=== PATIENT | female | born 1955 | race Caucasian/White ===

== ENCOUNTER 2016-07-10 23:11 | Emergency (ER) | payer OTHER ==
[2016-07-10 23:51] VITALS: BMI 24.3
--- NOTE | 2016-07-11 | ED PDOC ---
Arrival/HPI - General Time Seen by Provider: 07/10/16 23:45 Historian: Patient - History of Present Illness Narrative History of Present Illness (Text): 07/10/16 23:57 Sheron Em is a 60 year old female, whose past medical history includes hypertension, CHF, diabetes, dyslipidemia, pacemaker, and cardiac arrest, who presents to the Emergency department accompanied by daughter complaining of depression. Daughter states tonight patient became very angry/upset and tearful after speaking with her sister over the phone regarding money issues. Daughter notes patient has been feeling depressed recently. Patient denies any suicidal ideation, homicidal ideation, fever, chills, chest pain, shortness of breath, nausea, vomiting, diarrhea, urinary symptoms, back pain, neck pain, headache, dizziness, or any other complaints. Time/Duration: Other (tonight) Symptom Onset: Gradual Symptom Course: Unchanged Activities at Onset: Emotional Upset Context: Home Past Medical History - Provider Review Nursing Documentation Reviewed: Yes - Infectious Disease Hx of Infectious Diseases: None - Tetanus Immunization Tetanus Immunization: Unknown - Cardiac Hx Cardiac Disorders: Yes Hx Congestive Heart Failure: Yes Hx Hypertension: Yes - Pulmonary Hx Respiratory Disorders: Yes Hx Asthma: Yes Hx Pneumonia: Yes - Neurological Hx Neurological Disorder: Yes (neuropathy) - HEENT Hx HEENT Disorder: No - Renal Hx Renal Disorder: No - Endocrine/Metabolic Hx Diabetes Mellitus Type 2: Yes Hx Hypothyroidism: No - Hematological/Oncological Hx Blood Disorders: No - Integumentary Hx Dermatological Disorder: No - Musculoskeletal/Rheumatological Hx Musculoskeletal Disorders: No - Gastrointestinal Hx Gastrointestinal Disorders: Yes Hx Gastroesophageal Reflux: Yes - Genitourinary/Gynecological Hx Genitourinary Disorders: No - Psychiatric Hx Anxiety: Yes Hx Substance Use: No - Past Surgical History Past Surgical History: Unable to Obtain - Surgical History Hx Coronary Stent: No - Anesthesia Hx Anesthesia: No Hx Anesthesia Reactions: No Hx Malignant Hyperthermia: No - Suicidal Assessment Feels Threatened In Home Enviroment: No Family/Social History - Physician Review Nursing Documentation Reviewed: Yes Family/Social History: No Known Family HX Smoking Status: Never Smoked Hx Alcohol Use: No Hx Substance Use: No Hx Substance Use Treatment: No Allergies/Home Meds Allergies/Adverse Reactions: Allergies No Known Allergies Allergy (Verified 11/18/15 06:00) Home Medications: Home Meds Medication Instructions Recorded Confirmed Simvastatin 40 mg PO DAILY 07/05/12 05/13/16 Aspirin [Adult Low Dose Aspirin EC] 81 mg PO DAILY 11/18/15 05/16/16 Metformin HCl [Glucophage] 850 mg PO BID 11/18/15 05/16/16 Sertraline HCl [Zoloft] 25 mg PO DAILY 12/20/15 05/13/16 Review of Systems - Physician Review All systems were reviewed & negative as marked: Yes - Review of Systems Constitutional: Normal. absent: Fevers Eyes: Normal ENT: Normal Respiratory: Normal. absent: SOB, Cough Cardiovascular: Normal. absent: Chest Pain Gastrointestinal: Normal. absent: Abdominal Pain, Diarrhea, Nausea, Vomiting Genitourinary Female: Normal. absent: Dysuria, Frequency, Hematuria, Urine Output Changes Musculoskeletal: Normal. absent: Back Pain, Neck Pain Skin: Normal. absent: Rash Neurological: Normal. absent: Headache, Dizziness Endocrine: Normal Hemo/Lymphatic: Normal Psychiatric: Depression Physical Exam Vital Signs Reviewed: Yes Vital Signs Temp Pulse Resp BP Pulse Ox 07/11/16 01:51 69 17 121/66 99 07/11/16 00:06 98.7 F 89 17 155/86 H 98 Temperature: Afebrile Blood Pressure: Normal Pulse: Regular Respiratory Rate: Normal Appearance: Positive for: Well-Appearing, Non-Toxic, Comfortable Pain Distress: None Mental Status: Positive for: Alert and Oriented X 3 - Systems Exam Head: Present: Atraumatic, Normocephalic Pupils: Present: PERRL Extroacular Muscles: Present: EOMI Conjunctiva: Present: Normal Mouth: Present: Moist Mucous Membranes Neck: Present: Normal Range of Motion Respiratory/Chest: Present: Clear to Auscultation, Good Air Exchange. No: Respiratory Distress, Accessory Muscle Use Cardiovascular: Present: Regular Rate and Rhythm, Normal S1, S2. No: Murmurs Abdomen: Present: Normal Bowel Sounds. No: Tenderness, Distention, Peritoneal Signs Back: Present: Normal Inspection Upper Extremity: Present: Normal Inspection. No: Cyanosis, Edema Lower Extremity: Present: Normal Inspection. No: Edema Neurological: Present: GCS=15, CN II-XII Intact, Speech Normal Skin: Present: Warm, Dry, Normal Color. No: Rashes Psychiatric: Present: Alert, Oriented x 3, Normal Insight, Normal Concentration , Other (Tearful) Medical Decision Making ED Course and Treatment: 07/10/16 23:57 Impression: 60 year old female brought in for depression. Plan: -- EKG -- Chest X-ray -- Labs, alcohol level -- Urine drug screen -- Reassess and disposition Prior Visits: Notes and results from previous visits were reviewed. Progress Notes: Reviewed EKG, NSR at [address]/T wave changes. 07/11/16 02:05 Reviewed radiology, Chest X-ray shows no active disease. Reviewed labs, alcohol level <10. Negative tox screen. Patient medically cleared for psychiatric evaluation. SELMA solano. 07/11/16 04:05 Pt was seen and evaluated by SELMA Osorio. Pt was slated for eventual d/c, pending clearance by Dr. Watt, according to SELMA messina. Notified by RN that pt and family eloped from ER, refusing to wait. - Lab Interpretations Lab Results: 07/11/16 00:05 07/11/16 00:05 Lab Results 07/11/16 00:15: Urine Opiates Screen Negative, Urine Methadone Screen Negative, Ur Barbiturates Screen Negative, Ur Phencyclidine Scrn Negative, Ur Amphetamines Screen Negative, U Benzodiazepines Scrn Negative, U Oth Cocaine Metabols Negative, U Cannabinoids Screen Negative 07/11/16 00:05: WBC 5.6, RBC 4.25, Hgb 11.3 L, Hct 33.8 L, MCV 79.5 L, MCH 26.6 , MCHC 33.4, RDW 14.2, Plt Count 272, MPV 11.4 H, Sodium 135, Potassium 4.1, Chloride 96 L, Carbon Dioxide 25, Anion Gap 18, BUN 29 H, Creatinine 1.3, Est GFR ( Amer) 51, Est GFR (Non-Af Amer) 42, Random Glucose 187 H, Calcium 10.0, Total Bilirubin 0.5, AST 21, ALT 27, Alkaline Phosphatase 61, Total Protein 8.7 H, Albumin 4.9 H, Globulin 3.8, Albumin/Globulin Ratio 1.3, Alcohol , Quantitative < 10 I have reviewed the lab results: Yes - RAD Interpretation Radiology Orders: 07/11/16 00:01 CHEST PORTABLE [RAD] Stat Organizational Psychologist: ED Physician - EKG Interpretation Interpreted by ED Physician: Yes Type: 12 lead EKG - Scribe Statement The provider has reviewed the documentation as recorded by the Veronica Chapa Provider Attestation: All medical record entries made by the Veronica were at my direction and personally dictated by me. I have reviewed the chart and agree that the record accurately reflects my personal performance of the history, physical exam, medical decision making, and the department course for this patient. I have also personally directed, reviewed, and agree with the discharge instructions and disposition. Disposition/Present on Arrival - Present on Arrival Any Indicators Present on Arrival: No History of DVT/PE: No History of Uncontrolled Diabetes: No Urinary Catheter: No History Surgical Site Infection Following: None - Disposition Have Diagnosis and Disposition been Completed?: Yes Diagnosis: Adjustment disorder with depressed mood Disposition: ELOPEMENT - ER ONLY Disposition Time: 04:10 Condition: GOOD
[2016-07-11 00:10] VITALS: RESP 17; TEMP 98.7
[2016-07-11 00:37] LABS: HEMATOCRIT 33.8 % (36.0-48.0); MEAN CELL VOLUME 79.5 fL (80.0-105.0); MEAN CORPUSCULAR HEMOGLOBIN 26.6 pg (25.0-35.0); MEAN CORPUSCULAR HGB CONC 33.4 g/dl (31.0-37.0); MEAN PLATELET VOLUME 11.4 fl (7.0-11.0); RED CELL DISTRIBUTION WIDTH 14.2 % (11.5-14.5); WHITE BLOOD COUNT 5.6 10^3/ul (4.5-11.0)
[2016-07-11 00:53] LABS: ALB/GLOB RATIO 1.3 (1.1-1.8); BILIRUBIN,TOTAL 0.5 mg/dL (0.2-1.3); POTASSIUM 4.1 mmol/L (3.6-5.0); TOTAL PROTEIN 8.7 g/dL (5.8-8.3)
[2016-07-11 01:51] VITALS: BP 121/66; PULSE 69; O2SAT 99
--- NOTE | 2016-07-11 07:15 | RAD ---
HISTORY: medical clearance COMPARISON: 05/13/2016 FINDINGS: LUNGS: No active pulmonary disease. The prior airspace opacity/infiltrate -most pronounced the left lung base has cleared PLEURA: No significant pleural effusion identified, no pneumothorax apparent. CARDIOVASCULAR: Pacemaker-AICD device in place. Normal heart size OSSEOUS STRUCTURES: No significant abnormalities. VISUALIZED UPPER ABDOMEN: Normal. OTHER FINDINGS: None. IMPRESSION: No active disease. Interval clearing of prior infiltrate
--- NOTE | 2016-07-11 16:49 | CARD ---
APPROVED REPORT EKG Measurement Heart [id number] <Conclusion> Normal sinus rhythm ST & T wave abnormality, consider lateral ischemia Abnormal ECG
== END 2016-07-11 03:58 | disposition left against medical advice (07) ==
LOC: ED 23:11
DX: F43.21 Adjustment disorder with depressed mood (principal); E11.9 Type 2 diabetes mellitus without complications; I10 Essential (primary) hypertension; E78.5 Hyperlipidemia, unspecified; I50.9 Heart failure, unspecified; Z95.0 Presence of cardiac pacemaker; Z86.74 Personal history of sudden cardiac arrest

== ENCOUNTER 2016-11-10 16:27 | Observation (INO) | payer OTHER ==
[2016-11-10 16:39] VITALS: BMI 29.8
[2016-11-10 17:20] LABS: BASO # 0.03 K/mm3 (0.0-2.0); BASO % 0.6 % (0.0-3.0); EOS # 0.1 (0.0-0.7); EOS % 2.7 % (1.5-5.0); GRAN # 2.48 (1.4-6.5); GRAN % 48.2 % (50.0-68.0); HEMOGLOBIN 9.7 gm/dL (12.0-16.0); LYMPH # 2.2 (1.2-3.4); LYMPH % 42.3 % (22.0-35.0); MEAN CORPUSCULAR HEMOGLOBIN 26.8 pg (25.0-35.0); MEAN CORPUSCULAR HGB CONC 32.7 g/dl (31.0-37.0); MEAN PLATELET VOLUME 10.5 fl (7.0-11.0); MONO # 0.3 (0.1-0.6); MONO % 6.2 % (1.0-6.0); PLATELET COUNT 241 10^3/uL (120.0-450.0); RBC 3.62 10^6/uL (3.5-6.1); RED CELL DISTRIBUTION WIDTH 13.6 % (11.5-14.5); WHITE BLOOD COUNT 5.2 10^3/ul (4.5-11.0)
[2016-11-10 17:31] LABS: ALB/GLOB RATIO 1.4 (1.1-1.8); ALBUMIN 4.1 g/dL (3.0-4.8); ALT/SGPT 21 U/L (7-56); AST/SGOT 24 U/L (15-39); BLOOD UREA NITROGEN 21 mg/dL (7-21); CALCIUM 9.3 mg/dL (8.4-10.5); GFR AFRICAN-AMERICAN > 60; GFR NON-AFRICAN AMERICAN 51; INR 0.98 (0.93-1.08); LIPASE 103 U/L (23-300); MAGNESIUM 1.5 mg/dL (1.7-2.2); PARTIAL THROMBOPLASTIN TIME 27.8 Seconds (23.7-30.8); PROTHROMBIN TIME 10.6 Seconds (9.9-11.8)
[2016-11-10] MEDS ORDERED: Magnesium Sulfate 2 GM in Sodium Chloride 0.9% 100 ML IV ONE (17:37)
[2016-11-10 17:43] LABS: B-TYPE NATRIURETIC PEPTIDE 990 pg/mL (0-450)
[2016-11-10 17:44] LABS: TROPONIN I < 0.01 ng/mL
--- NOTE | 2016-11-10 18:00 | ED PDOC ---
Arrival/HPI - General Chief Complaint: Syncope Time Seen by Provider: 11/10/16 16:32 Historian: Patient - History of Present Illness Narrative History of Present Illness (Text): 11/10/16 17:00 A 60 year old female, whose past medical history includes hypertension, CHF, diabetes, dyslipidemia, cardiac arrest, and pacemaker, is presenting to the emergency department after having an episode of feeling faint and diaphoresis after eating lunch around 1pm this today. The patient complains of chest pain, diaphoresis, and dizziness during her episode. She states her daughter gave her something to drink thinking she felt this way due to hyperglycemia. She notes after drinking she felt better, but when she stood up she had another episode of nearly fainting. Along with her symptoms she also reports of having black stool for the past week. The patient denies any nausea, vomiting, diarrhea, or any other complaints at this time. Time/Duration: 4-6 hours (1 pm today ) Symptom Onset: Sudden Symptom Course: Unchanged Activities at Onset: Light, Eating Context: Home Past Medical History - Provider Review Nursing Documentation Reviewed: Yes - Infectious Disease Hx of Infectious Diseases: None - Tetanus Immunization Tetanus Immunization: Unknown - Cardiac Hx Cardiac Disorders: Yes Hx Congestive Heart Failure: Yes Hx MS: Yes Hx Hypertension: Yes Hx Peripheral Edema: Yes - Pulmonary Hx Respiratory Disorders: Yes Hx Asthma: Yes Hx Pneumonia: Yes Hx Pulmonary Edema: Yes - Neurological Hx Neurological Disorder: Yes (neuropathy) - HEENT Hx HEENT Disorder: No - Renal Hx Renal Disorder: No - Endocrine/Metabolic Hx Diabetes Mellitus Type 2: Yes Hx Hypothyroidism: No - Hematological/Oncological Hx Blood Disorders: No - Integumentary Hx Dermatological Disorder: No - Musculoskeletal/Rheumatological Hx Musculoskeletal Disorders: No - Gastrointestinal Hx Gastrointestinal Disorders: Yes Hx Gastroesophageal Reflux: Yes - Genitourinary/Gynecological Hx Genitourinary Disorders: No - Psychiatric Hx Anxiety: Yes Hx Substance Use: No - Past Surgical History Past Surgical History: Unable to Obtain - Surgical History Other/Comment: cardiac arrest 03/2015 - Anesthesia Hx Anesthesia: No Hx Anesthesia Reactions: No Hx Malignant Hyperthermia: No - Suicidal Assessment Feels Threatened In Home Enviroment: No Family/Social History - Physician Review Nursing Documentation Reviewed: Yes Family/Social History: No Known Family HX Smoking Status: Never Smoked Hx Alcohol Use: No Hx Substance Use: No Hx Substance Use Treatment: No Allergies/Home Meds Allergies/Adverse Reactions: Allergies No Known Allergies Allergy (Verified 11/10/16 16:39) Home Medications: Home Meds Medication Instructions Recorded Confirmed Simvastatin 40 mg PO DAILY 07/05/12 11/10/16 Aspirin [Adult Low Dose Aspirin EC] 81 mg PO DAILY 11/18/15 11/10/16 Metformin HCl [Glucophage] 850 mg PO BID 11/18/15 11/10/16 Sertraline HCl [Zoloft] 25 mg PO DAILY 12/20/15 11/10/16 Review of Systems - Physician Review All systems were reviewed & negative as marked: Yes - Review of Systems Cardiovascular: Chest Pain Gastrointestinal: Stool Changes (Black stool x 1 week ) Neurological: Dizziness Endocrine: Diaphoresis Physical Exam Vital Signs Reviewed: Yes Vital Signs Temp Pulse Resp BP Pulse Ox 11/10/16 16:50 98.3 F 61 25 H 118/67 97 Temperature: Afebrile Blood Pressure: Normal Pulse: Regular Respiratory Rate: Normal Appearance: Positive for: Well-Appearing, Non-Toxic, Comfortable Pain Distress: None Mental Status: Positive for: Alert and Oriented X 3 - Systems Exam Head: Present: Atraumatic, Normocephalic Pupils: Present: PERRL Mouth: Present: Moist Mucous Membranes Neck: Present: Normal Range of Motion Respiratory/Chest: Present: Clear to Auscultation, Good Air Exchange. No: Respiratory Distress, Accessory Muscle Use Cardiovascular: Present: Regular Rate and Rhythm, Normal S1, S2. No: Murmurs Abdomen: Present: Normal Bowel Sounds. No: Tenderness, Distention, Peritoneal Signs Upper Extremity: Present: Normal Inspection. No: Cyanosis, Edema Lower Extremity: Present: Normal Inspection. No: Edema Neurological: Present: GCS=15, Speech Normal Skin: Present: Warm, Dry, Normal Color. No: Rashes Psychiatric: Present: Alert, Oriented x 3, Normal Insight, Normal Concentration Medical Decision Making ED Course and Treatment: 11/10/16 17:00 Impression: A 60 year old female who had two episodes of nearly fainting. Differential Diagnosis included but are not limited to: ACS vs. PE vs electolyte abnormality vs arrhythmia Plan: -- Head CT -- EKG -- Chest X-Ray -- IV Fluids -- Urinalysis -- Reassess and disposition Prior Visits: Notes and results from previous visits were reviewed. Patient was last seen on 07/10/16 for depression. Patient eloped from the Emergency department. Progress Notes: EKG: Ordered, reviewed, and independently interpreted the EKG. Rate : 57 BPM Rhythm : Bradycardic Interpretation : First degree AV block. WA is 218. Intervals are normal with normal access. Comparison : No ST/T changes compared to 07/10/16 11/10/16 18:33 Patient with noted history of multiple episodes of chest pain with near syncope. EKG is unchanged. CBC shows mildly decreased H/H; electrolytes are nondiagnostic. Given history - will place on tele; discussed with Dr. Pickens for observation on tele. - Lab Interpretations Lab Results: 11/10/16 16:55 11/10/16 16:55 Lab Results 11/10/16 16:55: Sodium 136, Potassium 4.3, Chloride 102, Carbon Dioxide 23, Anion Gap 15, BUN 21, Creatinine 1.1, Est GFR ( Amer) > 60, Est GFR (Non- Af Amer) 51, Random Glucose 120 H, Calcium 9.3, Magnesium 1.5 L, Total Bilirubin 0.3, AST 24, ALT 21, Alkaline Phosphatase 45, Lactate Dehydrogenase 358, Total Creatine Kinase 61, Troponin I < 0.01 D, NT-Pro-B Natriuret Pep 990 H, Total Protein 7.1, Albumin 4.1, Globulin 3.0, Albumin/Globulin Ratio 1.4, Lipase 103 11/10/16 16:55: PT 10.6, INR 0.98, APTT 27.8 11/10/16 16:55: WBC 5.2, RBC 3.62, Hgb 9.7 L, Hct 29.7 L, MCV 82.0, MCH 26.8, MCHC 32.7, RDW 13.6, Plt Count 241, MPV 10.5, Gran % 48.2 L, Lymph % (Auto) 42.3 H, Amelia % (Auto) 6.2 H, Eos % (Auto) 2.7, Baso % (Auto) 0.6, Gran # 2.48, Lymph # 2.2, Amelia # 0.3, Eos # 0.1, Baso # 0.03 - RAD Interpretation Radiology Orders: 11/10/16 17:06 CHEST PORTABLE [RAD] Stat 11/10/16 17:08 Brain [HEAD W/O CONTRAST] [CT] Stat - Medication Orders Current Medication Orders: Magnesium Sulfate 2 gm/ Sodium (Chloride) 104 mls @ 102 mls/hr IV ONCE ONE Stop: 11/10/16 18:38 Last Admin: 11/10/16 18:04 Dose: 102 mls/hr - PA / DISHWASHING MACHINE REPAIRER / Resident Statement MD/ has reviewed & agrees with the documentation as recorded. - Scribe Statement The provider has reviewed the documentation as recorded by the Scribe Angie Banerjee Provider Scribe Attestation: All medical record entries made by the Scribe were at my direction and personally dictated by me. I have reviewed the chart and agree that the record accurately reflects my personal performance of the history, physical exam, medical decision making, and the department course for this patient. I have also personally directed, reviewed, and agree with the discharge instructions and disposition. Disposition/Present on Arrival - Present on Arrival Any Indicators Present on Arrival: No History of DVT/PE: No History of Uncontrolled Diabetes: No Urinary Catheter: No History of Decub. Ulcer: No History Surgical Site Infection Following: None - Disposition Have Diagnosis and Disposition been Completed?: Yes Diagnosis: Near syncope, Chest pain Disposition: HOSPITALIZED Disposition Time: 18:00 Patient Plan: Observation, Telemetry Patient Problems: Current Active Problems Problem Status Onset Chest pain Acute Near syncope Acute Condition: FAIR
--- NOTE | 2016-11-10 20:07 | CP.PCM.HP ---
<JuniorMihir - Last Filed: 11/10/16 20:54> History of Present Illness - History of Present Illness History of Present Illness: 60 y/o F with PMH of HTN, CHF, DM, dyslipidemia, pacemaker, and cardiac arrest presents to the hospital for 5 day history of dizziness. Pt is faroese speaking and is accompanied by her son who translates for her. Pt states she has been feeling progressively dizzy during this time. She states she is also having a headache at this time which also started 5 days ago. Pt states her dizziness is constant, and occurs even while laying down. She is not able to stand on her own at this time due to dizziness. She has had adequate oral intake during this time. Pt also admits to shortness of breath and orthopnea. She is compliant with all her medications at home. Denies CP, N/V/D, fevers, chills, syncope, tingling, numbness. PMH: As above Surgical Hx: Pacemaker implantation Social Hx: Denies tobacco, alcohol, or illicit drug use Medication: Reviewed, as per chart Allergies: NKDA Present on Admission - Present on Admission Any Indicators Present on Admission: No Review of Systems - Constitutional Constitutional: Fatigue. absent: Chills, Fever - EENT Eyes: absent: Blurred Vision, Change in Vision - Cardiovascular Cardiovascular: Chest Pain. absent: Irregular Heart Rhythm, Palpitations - Respiratory Respiratory: Dyspnea. absent: Cough - Gastrointestinal Gastrointestinal: absent: Diarrhea, Nausea, Vomiting - Genitourinary Genitourinary: absent: Dysuria, Pyuria - Musculoskeletal Musculoskeletal: absent: Numbness, Tingling - Integumentary Integumentary: absent: New Lesions, Rash - Neurological Neurological: Headaches, Vertigo. absent: Syncope - Hematologic/Lymphatic Hematologic: absent: Easy Bleeding, Easy Bruising Past Patient History - Infectious Disease Hx of Infectious Diseases: None - Tetanus Immunizations Tetanus Immunization: Unknown - Past Medical History & Family History Past Medical History?: Yes - Past Social History Smoking Status: Never Smoked - CARDIAC Hx Cardiac Disorders: Yes Hx Congestive Heart Failure: Yes Hx Heart Attack: Yes Hx Hypertension: Yes Hx Peripheral Edema: Yes - PULMONARY Hx Respiratory Disorders: Yes Hx Asthma: Yes Hx Pneumonia: Yes Hx Pulmonary Edema: Yes - NEUROLOGICAL Hx Neurological Disorder: Yes (neuropathy) - HEENT Hx HEENT Problems: No - RENAL Hx Chronic Kidney Disease: No - ENDOCRINE/METABOLIC Hx Diabetes Mellitus Type 2: Yes Hx Hypothyroidism: No - HEMATOLOGICAL/ONCOLOGICAL Hx Blood Disorders: No - INTEGUMENTARY Hx Dermatological Problems: No - MUSCULOSKELETAL/RHEUMATOLOGICAL Hx Musculoskeletal Disorders: No - GASTROINTESTINAL Hx Gastrointestinal Disorders: Yes Hx Gastroesophageal Reflux: Yes - GENITOURINARY/GYNECOLOGICAL Hx Genitourinary Disorders: No - PSYCHIATRIC Hx Anxiety: Yes Hx Substance Use: No - SURGICAL HISTORY Other/Comment: cardiac arrest 03/2015 - ANESTHESIA Hx Anesthesia: No Hx Anesthesia Reactions: No Hx Malignant Hyperthermia: No Meds Allergies/Adverse Reactions: Allergies Allergy/AdvReac Type Severity Reaction Status Date / Time No Known Allergies Allergy Verified 11/10/16 19:34 Physical Exam - Constitutional Appears: Non-toxic, No Acute Distress - Head Exam Head Exam: ATRAUMATIC, NORMAL INSPECTION, NORMOCEPHALIC - Eye Exam Eye Exam: EOMI, PERRL - ENT Exam ENT Exam: Mucous Membranes Moist - Neck Exam Neck exam: Positive for: Normal Inspection. Negative for: Lymphadenopathy - Respiratory Exam Respiratory Exam: Rales (Mild at b/l bases), NORMAL BREATHING PATTERN. absent: Rhonchi - Cardiovascular Exam Cardiovascular Exam: RRR, +S1, +S2 - GI/Abdominal Exam GI & Abdominal Exam: Normal Bowel Sounds, Soft. absent: Tenderness - Extremities Exam Extremities exam: Negative for: calf tenderness, pedal edema - Neurological Exam Neurological exam: Alert, CN II-XII Intact, Oriented x3 Additional comments: 5/5 muscle strength in all extremities - Psychiatric Exam Psychiatric exam: Normal Affect, Normal Mood - Skin Skin Exam: Intact, Normal Color, Warm Results - Vital Signs Recent Vital Signs: Last Vital Signs Temp 98.3 F 11/10/16 16:50 Pulse 56 L 11/10/16 19:15 Resp 18 11/10/16 19:15 BP 137/49 L 11/10/16 19:15 Pulse Ox 100 11/10/16 19:15 - Labs Result Diagrams: 11/10/16 16:55 11/10/16 16:55 Assessment & Plan - Assessment and Plan (Free Text) Plan: 60 y/o F with PMH of HTN, CHF, DM, dyslipidemia, pacemaker, and cardiac arrest presents with CHF exacerbation and dizziness. Head CT showed no acute intracranial pathology. Chest x-ray appears to have congestion b/l. BNP elevated will start IV lasix and hold home PO lasix. We will consult cardiology and neurology. Pt will be admitted and followed closely. 1. CHF exacerbation - Lasix 40 mg daily - Lisinopril 10 mg daily - Hold metoprolol in acute exacerbation - strict I's and O's - Daily weights - Head of bed elevated - Cardiology consulted, Dr. Cm 2. Dizziness/Vertigo - Meclizine - Cartoid doppler - Neurology consulted, Dr. Naveen Faust 3. HTN - Resume home meds, hold metoprolol 4. DM - ISS - HgA1c - Hold metformin 5. Headache - Ibuprofen 6. PPX - Protonix - Heparin Seen, reviewed, and discussed with attending Junior PGY-2 <Diaz [place] - Last Filed: 11/10/16 21:37> Results - Vital Signs Recent Vital Signs: Last Vital Signs Temp 98.3 F 11/10/16 16:50 Pulse 56 L 11/10/16 20:28 Resp 17 11/10/16 20:28 BP 130/56 L 11/10/16 20:28 Pulse Ox 100 11/10/16 20:28 - Labs Result Diagrams: 11/10/16 16:55 11/10/16 16:55 Labs: Laboratory Results - last 24 hr 11/10/16 11/10/16 11/10/16 20:00 20:55 20:57 POC Glucose (mg/dL) 100 Triglycerides 137 Cholesterol 166 LDL Cholesterol Direct 98 HDL Cholesterol 51 Urine Color Yellow Urine Appearance Clear Urine pH 6.0 Ur Specific [place] <= 1.005 Urine Protein Negative Urine Glucose (UA) Negative Urine Ketones Negative Urine Blood Negative Urine Nitrate Negative Urine Bilirubin Negative Urine Urobilinogen 0.2 Ur Leukocyte Esterase Small H Urine RBC Negative Urine WBC 1 - 3 Ur Epithelial Cells 0 - 2 Urine Bacteria Few Attending/Attestation - Attestation I have personally seen and examined this patient.: Yes I have fully participated in the care of the patient.: Yes I have reviewed all pertinent clinical information: Yes Notes (Text): 11/10/16 21:24 Patient was seen when she was in bed # 5 in the ER. Agree with history, physical examination, assessment and plan. Following should be added. This 60 year old woman with past medical history of DM II, HTN, CHF, HLD, rheumatic fever at age 12 years, overweight, [place], thyroid surgery, surgery for ectopic , pneumonia, PPM insertion, cardiac arrest, cardiac catheterization , family history of DM, social history negative for ETOH,smoking , drugs, comes in with complaints of dizziness, chest pain, head ache secondary to tooth problem, blurry vision, History was obtained with help of daughter who is by bedside.EKG showing Sinus bradycardia, 1st degree block, ischemic changes.
[2016-11-10 20:16] LABS: URINE BILIRUBIN NEGATIVE (NEGATIVE); URINE BLOOD NEGATIVE (NEGATIVE); URINE GLUCOSE (UA) NEGATIVE (NEGATIVE); URINE LEUKOCYTE ESTERASE SMALL Leu/uL (NEGATIVE); URINE NITRATE NEGATIVE (NEGATIVE); URINE PROTEIN NEGATIVE mg/dL (<30 mg/dL); URINE UROBILINOGEN 0.2 E.U./dL (<1 E.U./dL)
[2016-11-10 20:21] LABS: URINE APPEARANCE CLEAR (CLEAR); URINE COLOR YELLOW (YELLOW)
[2016-11-10 20:39] LABS: URINE BACTERIA FEW (NEG); URINE EPITHELIAL CELLS 0 - 2 /hpf (0-5); URINE RBC NEGATIVE /hpf (0-2)
[2016-11-10 21:03] LABS: HDL CHOLESTEROL 51 mg/dL (29-60)
[2016-11-10 21:13] LABS: LDL CHOLESTEROL 98 mg/dL (0-129)
[2016-11-10] MEDS ORDERED: Pneumococcal 23-Valent Vaccine IM ONE (22:22)
[2016-11-10] MEDS: Insulin Lispro (humaLOG) LOW Coverage SC SCH (22:32)
[2016-11-11] MEDS ORDERED: Albuterol HFA 90 mcg/actuation (8 g) IH SCH
[2016-11-11] MEDS: Albuterol 0.083% Inhal Sol (2.5 mg/3 mL) UD IH SCH ×3 (02:00→14:00)
[2016-11-11 07:01] LABS: HEMOGLOBIN 9.6 gm/dL (12.0-16.0); MEAN CELL VOLUME 82.7 fL (80.0-105.0); MEAN CORPUSCULAR HGB CONC 31.5 g/dl (31.0-37.0); MEAN PLATELET VOLUME 10.8 fl (7.0-11.0); RBC 3.69 10^6/uL (3.5-6.1); RED CELL DISTRIBUTION WIDTH 13.8 % (11.5-14.5); WHITE BLOOD COUNT 4.9 10^3/ul (4.5-11.0)
[2016-11-11 07:32] LABS: ALB/GLOB RATIO 1.3 (1.1-1.8); ALBUMIN 3.8 g/dL (3.0-4.8); ALT/SGPT 26 U/L (7-56); AST/SGOT 17 U/L (15-39); BLOOD UREA NITROGEN 18 mg/dL (7-21); CALCIUM 9.3 mg/dL (8.4-10.5); GFR AFRICAN-AMERICAN > 60; GFR NON-AFRICAN AMERICAN 51
[2016-11-11 07:45] LABS: TROPONIN I < 0.01 ng/mL
[2016-11-11] MEDS: Insulin Lispro (humaLOG) LOW Coverage SC SCH ×3 (08:06→17:10)
--- NOTE | 2016-11-11 09:40 | CARD ---
APPROVED REPORT EKG Measurement Heart [id number] <Conclusion> Sinus bradycardia with 1st degree AV block T wave abnormality, consider lateral ischemia LVH by voltage No change except slower rate
--- NOTE | 2016-11-11 09:52 | CT ---
PROCEDURE: CT HEAD WITHOUT CONTRAST. HISTORY: dizzy COMPARISON: None available. TECHNIQUE: Axial computed tomography images were obtained through the head/brain without intravenous contrast. Radiation dose: Total exam DLP = 677 mGy-cm. This CT exam was performed using one or more of the following dose reduction techniques: Automated exposure control, adjustment of the mA and/or kV according to patient size, and/or use of iterative reconstruction technique. FINDINGS: HEMORRHAGE: No intracranial hemorrhage. BRAIN: No mass effect or edema. Mild chronic microvascular changes are seen VENTRICLES: Unremarkable. No hydrocephalus. CALVARIUM: Unremarkable. PARANASAL SINUSES: Mucous retention cyst in the right maxillary sinus MASTOID AIR CELLS: Unremarkable as visualized. No inflammatory changes. OTHER FINDINGS: The report concurs with the preliminary [facility] report IMPRESSION: No acute findings
[2016-11-11] MEDS ORDERED: Non Formulary Medication (Simvastatin [Simvastatin] 40 MG) PO SCH (10:00)
--- NOTE | 2016-11-11 12:03 | CP.PCM.PN ---
<BenignoTyson - Last Filed: 11/11/16 12:00> Subjective - Date & Time of Evaluation Date of Evaluation: 11/11/16 Time of Evaluation: 12:00 - Subjective Subjective: Patient s/e at bedside this AM on GMF. No acute events overnight. The patient is noted to be resting comfortably in bed. Patient denies headache or worsening of her presenting symptoms. She denies chest pain, shortness of breath, nausea, vomiting, and swelling in her legs. Patient to be evaluated by cardiology and neurology. Objective - Vital Signs/Intake and Output Vital Signs (last 24 hours): Temp Pulse Resp BP Pulse Ox 97.7 F 61 18 119/70 100 11/11/16 06:00 11/11/16 06:00 11/11/16 06:00 11/11/16 10:07 11/11/16 06:00 Intake and Output: 11/11/16 11/11/16 06:59 18:59 Intake Total 240 Balance 240 - Medications Medications: Current Medications Albuterol Sulfate (Albuterol 0.083% Inhal Maryann (2.5 Mg/3 Ml) Ud) 2.5 mg IH [id number] [facility] Aspirin (Ecotrin) 81 mg PO DAILY [facility] Last Admin: 11/11/16 10:06 Dose: 81 mg Atorvastatin Calcium (Lipitor) 20 mg PO DIN [facility] Ferrous Sulfate (Feosol) 324 mg PO TID [facility] Last Admin: 11/11/16 10:06 Dose: 324 mg Furosemide (Lasix) 40 mg IVP DAILY [facility] Last Admin: 11/11/16 10:07 Dose: 40 mg Heparin Sodium (Porcine) (Heparin) 5,000 units SC Q12 [facility] PRN Reason: Protocol Last Admin: 11/11/16 10:06 Dose: 5,000 units Ibuprofen (Motrin Tab) 600 mg PO Q6H PRN PRN Reason: Pain, moderate (4-7) Insulin Human Lispro (Humalog Low) 0 units SC ACHS [facility] PRN Reason: Protocol Last Admin: 11/11/16 08:06 Dose: Not Given Lisinopril (Zestril) 10 mg PO DAILY [facility] Last Admin: 11/11/16 10:10 Dose: 10 mg Meclizine HCl (Antivert) 25 mg PO BID [facility] Last Admin: 11/11/16 10:06 Dose: 25 mg Pantoprazole Sodium (Protonix Inj) 40 mg IVP DAILY [facility] Last Admin: 11/11/16 10:08 Dose: 40 mg Sertraline HCl (Zoloft) 25 mg PO DAILY [facility] Last Admin: 11/11/16 10:10 Dose: 25 mg - Labs Labs: 11/11/16 06:15 11/11/16 06:15 PT 10.6 Seconds (9.9-11.8) 11/10/16 16:55 INR 0.98 (0.93-1.08) 11/10/16 16:55 APTT 27.8 Seconds (23.7-30.8) 11/10/16 16:55 - Head Exam Head Exam: ATRAUMATIC, NORMAL INSPECTION - Eye Exam Eye Exam: EOMI, PERRL - ENT Exam ENT Exam: Mucous Membranes Moist, Normal Exam - Neck Exam Neck Exam: Full ROM - Respiratory Exam Respiratory Exam: Rales (bilateral base), NORMAL BREATHING PATTERN - Cardiovascular Exam Cardiovascular Exam: REGULAR RHYTHM, +S1, +S2 - GI/Abdominal Exam GI & Abdominal Exam: Soft, Normal Bowel Sounds - Extremities Exam Extremities Exam: Full ROM. absent: Calf Tenderness, Pedal Edema, Tenderness - Neurological Exam Neurological Exam: Alert, Awake, CN II-XII Intact, Oriented x3 Neuro motor strength exam: Left Upper Extremity: 5, Right Upper Extremity: 5, Left Lower Extremity: 5, Right Lower Extremity: 5 - Psychiatric Exam Psychiatric exam: Normal Affect, Normal Mood - Skin Skin Exam: Dry, Normal Color, Warm Assessment and Plan (1) Acute CHF (congestive heart failure) Status: Chronic (2) Diabetes type 2, uncontrolled Status: Chronic (3) HTN (hypertension) Status: Chronic - Assessment and Plan (Free Text) Assessment: 60 year old female with PMH of CHF, HTN, dyslipidemia, pacemaker, cardiac arrest and DM who presents with CHF exacerbation and dizziness Plan: 1. CHF exacerbation - Continue lasix, lisinopril - Cardiology consulted, Dr. Cm 2. Dizziness/Vertigo - Meclizine - Carotid artery ultrasound - Neurology consulted, Dr. Naveen Faust - PT eval 3. HTN - stable - Lisinopril 4. DM - stable - ISS - Hold metformin 5. Headache - Ibuprofen prn 6. Hx of HLD - Statin 7. GI/DVT prohylaxis - Protonix - Heparin Dispo: Patient to be monitored overnight with potential for discharge in next 24 -49 hours <Paolo Pickens - Last Filed: 11/11/16 17:41> Objective - Vital Signs/Intake and Output Vital Signs (last 24 hours): Temp Pulse Resp BP Pulse Ox 98 F 72 16 147/85 97 11/11/16 16:52 11/11/16 16:52 11/11/16 16:52 11/11/16 16:52 11/11/16 16:52 Intake and Output: 11/11/16 11/11/16 06:59 18:59 Intake Total 240 240 Output Total 500 Balance 240 -260 - Medications Medications: Current Medications Albuterol Sulfate (Albuterol 0.083% Inhal Maryann (2.5 Mg/3 Ml) Ud) 2.5 mg IH [id number] [facility] Last Admin: 11/11/16 14:00 Dose: 2.5 mg Aspirin (Ecotrin) 81 mg PO DAILY [facility] Last Admin: 11/11/16 10:06 Dose: 81 mg Atorvastatin Calcium (Lipitor) 20 mg PO DIN [facility] Last Admin: 11/11/16 17:11 Dose: 20 mg Ferrous Sulfate (Feosol) 324 mg PO TID [facility] Last Admin: 11/11/16 17:10 Dose: 324 mg Furosemide (Lasix) 40 mg IVP DAILY [facility] Last Admin: 11/11/16 10:07 Dose: 40 mg Heparin Sodium (Porcine) (Heparin) 5,000 units SC Q12 [facility] PRN Reason: Protocol Last Admin: 11/11/16 10:06 Dose: 5,000 units Ibuprofen (Motrin Tab) 600 mg PO Q6H PRN PRN Reason: Pain, moderate (4-7) Insulin Human Lispro (Humalog Low) 0 units SC ACHS [facility] PRN Reason: Protocol Last Admin: 11/11/16 17:10 Dose: 4 units Lisinopril (Zestril) 10 mg PO DAILY [facility] Last Admin: 11/11/16 10:10 Dose: 10 mg Meclizine HCl (Antivert) 25 mg PO BID [facility] Last Admin: 11/11/16 17:10 Dose: 25 mg Metoprolol Tartrate (Lopressor) 25 mg PO BID [facility] Last Admin: 11/11/16 17:11 Dose: 25 mg Pantoprazole Sodium (Protonix Inj) 40 mg IVP DAILY [facility] Last Admin: 11/11/16 10:08 Dose: 40 mg Sertraline HCl (Zoloft) 25 mg PO DAILY [facility] Last Admin: 11/11/16 10:10 Dose: 25 mg - Labs Labs: 11/11/16 06:15 11/11/16 06:15 PT 10.6 Seconds (9.9-11.8) 11/10/16 16:55 INR 0.98 (0.93-1.08) 11/10/16 16:55 APTT 27.8 Seconds (23.7-30.8) 11/10/16 16:55 Attending/Attestation - Attestation I have personally seen and examined this patient.: Yes I have fully participated in the care of the patient.: Yes I have reviewed all pertinent clinical information, including history, physical exam and plan: Yes Notes (Text): 11/11/16 17:22 attending note; Patient seen and examined with the resident. Patient is a 60-year-old female with PMH of HTN, CHF, DM, dyslipidemia, pacemaker presents to the ED with dizziness. CT head is negative. Neurology evaluation with Dr. Faust appreciated. Continue aspirin and Lipitor. cardiology consult appreciated. cardiac enzymes negative. Anemia; stable. Patient will follow-up with PMD Dr. Mendez. Patient will follow-up with cardiology Dr. Ortiz next week. 11/11/16 17:39 11/11/16 17:40
--- NOTE | 2016-11-11 13:01 | RAD ---
HISTORY: chest pain COMPARISON: 07/11/2016 FINDINGS: LUNGS: No active pulmonary disease. PLEURA: No significant pleural effusion identified, no pneumothorax apparent. CARDIOVASCULAR: Normal. OSSEOUS STRUCTURES: No significant abnormalities. VISUALIZED UPPER ABDOMEN: Normal. OTHER FINDINGS: Single lead pacemaker IMPRESSION: No active disease.
--- NOTE | 2016-11-11 14:44 | CON ---
DATE: 11/11/2016 CHIEF COMPLAINT: Near syncope. HISTORY OF PRESENT ILLNESS: This is a 60-year-old woman with a past medical history of hypertension, CHF, diabetes type II, dyslipidemia, pacemaker, history of cardiac arrest, who came to the hospital with dizziness and of lightheadedness. She has also been sitting to standing position. She also mentions that she has some chest pain and some shocking like sensation, where her pacemaker is placed. No focal weakness of the extremities. She is moving all extremities equally and neuro exam is nonfocal evidence of diabetic or peripheral neuropathy on examination. CAT scan showed no acute intracranial abnormality. PAST MEDICAL HISTORY: Hypertension, CHF, diabetes, dyslipidemia, pacemaker and cardiac arrest. REVIEW OF SYSTEMS: A 14-point review of system is negative except as in the HPI. SOCIAL HISTORY: No illicit drug use, smoking, or EtOH abuse. MEDICATIONS: Reviewed by the nurse per reconciliation sheet. ALLERGIES: NO KNOWN DRUG ALLERGIES. PHYSICAL EXAMINATION: VITAL SIGNS: Temperature 97.7, pulse rate 61, blood pressure 119/70, respiratory rate of 18, oxygen saturation 100% via room air. GENERAL: The patient is sitting up in bed, in no acute distress. HEENT: Head is atraumatic and normocephalic. PERRLA. Extraocular muscles intact. NECK: Supple. No JVD. No adenopathy noted. LUNGS: Clear to auscultation. No adventitious sounds. HEART: S1 and S2, normal rate and rhythm. No murmurs, rubs, or gallops. ABDOMEN: Soft, nontender, and nondistended. Bowel sounds present. EXTREMITIES: No clubbing, no cyanosis. Peripheral pulses 2+ felt bilaterally. NEUROLOGIC: The patient is alert and oriented to person and place, month, and year. Speech is fluent without any errors. Cranial nerves II-XII intact. Motor exam, moves all extremities equally. No pronator drift seen. Sensory exam, decreased light touch, pinprick , decreased vibration at the toes. DTRs are 2+ throughout and 1 at the ankles. Coordination, yrgiik-pl-otow intact. Gait is deferred for now. LABORATORY DATA: Sodium is 141, potassium is 4.2, chloride 106, carbon dioxide 24, BUN of 18, creatinine 1.1, random glucose 98. ASSESSMENT AND PLAN: This is a 60-year-old [place] woman with a history of hypertension, congestive heart failure, diabetes type II, dyslipidemia, pacemaker, came here for dizziness and electrical shock like sensation around her chest from her pacemaker. Her lightheadedness is most likely a near syncope secondary to transient cerebral hyperperfusion with a vasovagal component superimposed possible congestive heart failure exacerbation. Her dizziness is less likely a vertigo since she does not complain room. At this time recommend; 1. Reduce salt content in the diet. 2. Continue aspirin 81 and Lipitor 20 mg for stroke prevention. 3. Evaluate Cardiology for interrogation of pacemaker , if she gets shock like sensation. 4. Physical therapy to evaluate her gait at this time. Thank you for this consult. Hamzah Faust MD
[2016-11-11 16:53] VITALS: BP 147/85; PULSE 72; RESP 16; TEMP 98; O2SAT 97
--- NOTE | 2016-11-12 00:52 | CON ---
REASON FOR CONSULTATION: Dizziness. The patient is a poor historian. HISTORY OF PRESENT ILLNESS: The patient is a 60-year-old Martiniquais female, who has a history of hypertension, congestive heart failure, aortic stenosis and aortic insufficiency, history of cardiac arrest status post ICD placement in November of last year at [facility]. She follows in the clinic at [facility] and with her licensed appraiser Dr. Ortiz. The patient presented because of chest pain,diaphoresis and dizziness. The patient is unaware of any discharge of the defibrillator recently. The patient's most recent echo from May of this year revealed moderate LV systolic dysfunction with global hypokinesis and moderate anteroseptal hypokinesis according to the report, uijb-gb-dufafwsc aortic stenosis, irzsslcg-ks-vwxngf aortic insufficiency,moderate mitral insufficiency. Cardiac catheterization in June 2014 revealed moderate aortic stenosis with borderline cardiac output, no significant obstructive coronary artery disease, mild global hypokinesis at that time. SOCIAL HISTORY: Nonsmoker, nondrinker. MEDICATIONS: Antivert 25 mg twice a day, aspirin 81 mg once a day, ferrous sulfate one tablet t.i.d., heparin 5000 units twice a day, Lasix 20 mg daily, Lipitor 20 mg once a day, Zestril 10 mg once a day. PHYSICAL EXAMINATION GENERAL: The patient is a middle-aged female, who does not appear to be in any distress. VITAL SIGNS: Blood pressure 119/70, heart rate 61, temperature 97.7, respirations 18. HEENT: Normocephalic. NECK: No JVD. CARDIOPULMONARY: Heart sounds are regular. LUNGS: Chest clear. EXTREMITIES: No edema. LABORATORY DATA: Hemoglobin, hematocrit 9.6 and 38.5, white count and platelet count are within normal limits. SMA-7 is within normal limits. Two sets of troponins are negative. PT, PTT, INR, and D-dimer are within normal limits. EKG revealed sinus rhythm, consider lateral ischemic T-wave changes. EKG revealed sinus bradycardia with first-degree AV block, consider lateral ischemia, heart rate is 67. ASSESSMENT: 1. Dizziness. 2. Bbig-eb-dnhwrway aortic stenosis and fnurhyow-cu-gajcgz aortic insufficiency. 3. Mildly suppressed ejection fraction, which was estimated at 42%. 4. Anemia. RECOMMENDATIONS: Continue current aspirin 81 mg once a day, Lasix 40 mg daily, Lipitor 20 mg once a day, Zestril 10 mg once a day. Start Lopressor 25 mg twice a day. Case was discussed with Dr. Pickens. Pacemaker interrogation is recommended. A CT scan without contrast on admission was unremarkable. Carotid Doppler was performed and report is still pending and chest x-ray revealed mild CHF. Blayne Cm MD
--- NOTE | 2016-11-12 17:15 | US ---
PROCEDURE: Bilateral carotid artery duplex ultrasound HISTORY: Carotid stenosis venous. PHYSICIAN(S): Vinny Jones MD. TECHNIQUE: Duplex sonography and color-flow Doppler were used to evaluate the carotid bifurcations and limited segments of the vertebral arteries bilaterally. FINDINGS: There is mild smooth hypoechoic plaque noted at the carotid bifurcations bilaterally. The peak systolic velocity in the proximal right internal carotid artery is 90 cm/sec. This corresponds to a 20 to 39% proximal right ICA stenosis. Normal systolic velocities are noted in the proximal right external carotid artery. There is antegrade flow in the right vertebral artery. The peak systolic velocity in the proximal left internal carotid artery is 84 cm/sec. This corresponds to a 20 to 39% proximal left ICA stenosis. Normal systolic velocities are noted in the proximal left external carotid artery. There is antegrade flow in the left vertebral artery. IMPRESSION: 1. Bilateral 20-39% proximal ICA stenoses. 2. Antegrade flow in both vertebral arteries.
== END 2016-11-11 18:15 | disposition home or self-care (01) ==
LOC: ED 16:27 → ERH 18:08 → 2RNO 21:18
PROVIDERS: ADMIT Internal Medicine; ATTEND Internal Medicine
DX: I11.0 Hypertensive heart disease with heart failure (principal); I50.21 Acute systolic (congestive) heart failure; E11.65 Type 2 diabetes mellitus with hyperglycemia; E11.42 Type 2 diabetes mellitus with diabetic polyneuropathy; D64.9 Anemia, unspecified; E78.5 Hyperlipidemia, unspecified; I08.0 Rheumatic disorders of both mitral and aortic valves; I25.2 Old myocardial infarction; J45.909 Unspecified asthma, uncomplicated; K21.9 Gastro-esophageal reflux disease without esophagitis; Z79.82 Long term (current) use of aspirin; Z79.899 Other long term (current) drug therapy; Z86.74 Personal history of sudden cardiac arrest; Z87.01 Personal history of pneumonia (recurrent); Z95.810 Presence of automatic (implantable) cardiac defibrillator; F41.9 Anxiety disorder, unspecified; R40.2412 Glasgow coma scale score 13-15, at arrival to emergency department; R00.1 Bradycardia, unspecified; I44.0 Atrioventricular block, first degree; R07.9 Chest pain, unspecified; R42 Dizziness and giddiness; R51 Headache
CPT/HCPCS: 36415; 70450; 71010; 80053; 80061; 81001; 82550; 82948; 83036; 83615; 83690; 83735; 83880; 84484; 85025; 85027; 85378; 85610; 85730; 87081; 87086; 93005; 93880; 94640; 96360; 99285; C9113; G0378; J1644; J1940; J3475

== ENCOUNTER 2017-01-11 16:11 | Emergency (ER) | payer OTHER ==
[2017-01-11 16:11] VITALS: BMI 29.8
[2017-01-11 16:24] VITALS: TEMP 98.4
--- NOTE | 2017-01-11 17:09 | ED PDOC ---
Arrival/HPI - General Historian: Patient - History of Present Illness Time/Duration: 24 hours Symptom Onset: Sudden Symptom Course: Intermittent Context: Home - General Chief Complaint: Weakness/Neurological Deficit Time Seen by Provider: 01/11/17 16:42 - History of Present Illness Narrative History of Present Illness (Text): 01/11/17 17:09 61yo F PMH CHF s/p pacemaker, hx cardiac arrest, HTN, DM2, HLD who presents with worsening b/l LE numbness. Pt states numbness started 1 month ago and has been worsening, and pt is anxious about having a serious adverse episode like her cardiac arrest, and so when the numbness begins, she feels like "Water is going up to her head" and feels like she's losing balance. She states that she was non-compliant with her meds till about a month ago when she began having the LE numbness and then started taking her meds regularly. Pt states that the numbness is worst at her hips and knees, and has trouble sleeping because of them. Pt denies cp, sob, fevers, n/v/d/constipation, trouble ambulating, headaches, changes in vision. pt has been unable to f/u with PMD and Cardio because they both left [facility]. (Anthony Haley) Past Medical History - Provider Review Nursing Documentation Reviewed: Yes - Infectious Disease Hx of Infectious Diseases: None - Tetanus Immunization Tetanus Immunization: Unknown - Cardiac Hx Cardiac Disorders: Yes Hx Congestive Heart Failure: Yes Hx Hypertension: Yes Hx Pacemaker: Yes (LEFT CHEST WALL-HACKENSACK) Other/Comment: CARDIAC ARREST 2014 - Pulmonary Hx Respiratory Disorders: Yes Hx Asthma: Yes Hx Pneumonia: Yes - Neurological Hx Neurological Disorder: Yes (neuropathy) Hx Dizziness: Yes - HEENT Hx HEENT Disorder: No - Renal Hx Renal Disorder: No - Endocrine/Metabolic Hx Endocrine Disorders: Yes Hx Diabetes Mellitus Type 2: Yes Hx Hypothyroidism: No - Hematological/Oncological Hx Blood Disorders: No - Integumentary Hx Dermatological Disorder: No - Musculoskeletal/Rheumatological Hx Musculoskeletal Disorders: No Hx Falls: No - Gastrointestinal Hx Gastrointestinal Disorders: Yes Hx Gastroesophageal Reflux: Yes - Genitourinary/Gynecological Hx Genitourinary Disorders: No - Psychiatric Hx Anxiety: Yes Hx Substance Use: No - Past Surgical History Past Surgical History: Unable to Obtain - Surgical History Hx Cardiac Catheterization: Yes (2012) Hx Section: Yes Hx Thyroidectomy: Yes - Anesthesia Hx Anesthesia: No Hx Anesthesia Reactions: No Hx Malignant Hyperthermia: No - Suicidal Assessment Feels Threatened In Home Enviroment: No Family/Social History - Physician Review Nursing Documentation Reviewed: Yes Family/Social History: Diabetes (father ) Smoking Status: Never Smoked Hx Alcohol Use: No Hx Substance Use: No Hx Substance Use Treatment: No Allergies/Home Meds Allergies/Adverse Reactions: Allergies No Known Allergies Allergy (Verified 01/11/17 16:14) Home Medications: Home Meds Medication Instructions Recorded Confirmed Simvastatin 40 mg PO DAILY 07/05/12 01/11/17 Aspirin [Adult Low Dose Aspirin EC] 81 mg PO DAILY 11/18/15 01/11/17 Metformin HCl [Glucophage] 850 mg PO BID 11/18/15 01/11/17 Sertraline HCl [Zoloft] 25 mg PO DAILY 12/20/15 01/11/17 Famotidine [Pepcid] 40 mg PO DAILY 01/11/17 01/11/17 Metoclopramide [Reglan] 5 mg PO Q12 PRN 01/11/17 01/11/17 Metoprolol Tartrate [Lopressor] 50 mg PO DAILY 01/11/17 01/11/17 metOLazone [Zaroxolyn] 2.5 mg PO BID 01/11/17 01/11/17 Review of Systems - Physician Review All systems were reviewed & negative as marked: Yes - Review of Systems Constitutional: absent: Fevers Eyes: absent: Vision Changes ENT: absent: Hearing Changes Respiratory: absent: SOB, Cough Cardiovascular: absent: Chest Pain, Palpitations, Edema Gastrointestinal: absent: Abdominal Pain, Constipation, Diarrhea, Nausea, Vomiting Genitourinary Female: absent: Hematuria Musculoskeletal: Arthralgias (hip and knees). absent: Back Pain, Neck Pain Neurological: Other (LE numbness). absent: Headache, Focal Weakness Physical Exam Vital Signs Reviewed: Yes Appearance: Positive for: Well-Appearing Pain Distress: None Mental Status: Positive for: Alert and Oriented X 3 Finger Stick Blood Glucose: 160 - Systems Exam Head: Present: Atraumatic, Normocephalic Pupils: Present: PERRL Extroacular Muscles: Present: EOMI Conjunctiva: Present: Normal Mouth: Present: Moist Mucous Membranes Neck: Present: Normal Range of Motion Respiratory/Chest: Present: Clear to Auscultation, Good Air Exchange. No: Respiratory Distress, Wheezes, Rales Cardiovascular: Present: Regular Rate and Rhythm, Normal S1, S2. No: Murmurs Abdomen: Present: Normal Bowel Sounds. No: Tenderness, Distention Back: Present: Normal Inspection. No: CVA Tenderness Upper Extremity: Present: Normal Inspection, Normal ROM, Neurovascularly Intact Lower Extremity: Present: Normal Inspection, NORMAL PULSES, Normal ROM, Neurovascularly Intact. No: Edema, Deformity Neurological: Present: Speech Normal, Motor Func Grossly Intact, Normal Sensory Function, Gait Normal Skin: Present: Warm, Dry, Normal Color. No: Rashes Psychiatric: Present: Alert, Oriented x 3 Vital Signs Temp Pulse Resp BP Pulse Ox 01/11/17 19:54 68 18 127/84 97 01/11/17 18:21 63 17 120/82 99 01/11/17 16:20 98.4 F 68 16 112/71 98 Medical Decision Making Re-evaluation Time: 19:29 Reassessment Condition: Re-examined, Improved - Lab Interpretations I have reviewed the lab results: Yes ED Course and Treatment: 01/11/17 17:27 Impression: 61yo F presenting with b/l LE numbness x1 month but recently worsening likely 2/ 2 diabetic neuropathy vs fibromyalgia Plan: - Reassessment and disposition - Labs - UA - EKG Progress: 01/11/17 19:29 reassessment: pt feeling better, denying any motor or sensory loss, numbness/ tingling currently. 01/11/17 19:43 Results were faxed from lab due to [employer] issue: CXR showed no active disease BNP mildly elevated but improved from baseline, no crackles on PE, and pt not complaining of sob Troponin I negative Pt offered to stay for observation but pt prefers to be d/c home and will follow up as outpatient. reassessment: pt offering no complaints. (Anthony Haley) 01/11/17 21:10 Sheron Em is a 61 year old female who presents to the emergency department with 1 month duration numbness. The patient was seen and examined with resident. Came up with treatment and disposition plan with resident. (Juan Gibson) - Lab Interpretations Lab Results: 01/11/17 16:35 01/11/17 16:35 Lab Results 01/11/17 16:35: Sodium 137, Potassium 4.5, Chloride 95 L, Carbon Dioxide 27, Anion Gap 20, BUN 37 H, Creatinine 1.7 H, Est GFR ( Amer) 37, Est GFR ( Non-Af Amer) 31, Random Glucose 135 H, Calcium 10.1, Magnesium 1.8, Total Bilirubin 0.5, AST 28, ALT 22, Alkaline Phosphatase 54, Lactate Dehydrogenase 495, Total Creatine Kinase 74, Troponin I Pending, NT-Pro-B Natriuret Pep Pending, Total Protein 7.9, Albumin 4.8, Globulin 3.1, Albumin/Globulin Ratio 1.5 01/11/17 16:35: PT 10.4, INR 0.96, APTT 29.0 01/11/17 16:35: WBC 6.3 D, RBC 4.03, Hgb 10.8 L, Hct 32.9 L, MCV 81.6, MCH 26.8 , MCHC 32.8, RDW 14.3, Plt Count 308, MPV 11.7 H, Gran % 50.9, Lymph % (Auto) 39.0 H, [place] % (Auto) 6.2 H, Eos % (Auto) 3.3, Baso % (Auto) 0.6, Gran # 3.20, Lymph # 2.5, [place] # 0.4, Eos # 0.2, Baso # 0.04 - RAD Interpretation Radiology Orders: 01/11/17 17:42 CXR [CHEST PORTABLE] [RAD] Stat Disposition/Present on Arrival - Present on Arrival Any Indicators Present on Arrival: No History of DVT/PE: No History of Uncontrolled Diabetes: Yes Urinary Catheter: No History of Decub. Ulcer: No History Surgical Site Infection Following: None - Disposition Have Diagnosis and Disposition been Completed?: Yes Disposition Time: 19:46 Patient Plan: Discharge - Disposition Diagnosis: Diabetic neuropathy Disposition: HOME/ ROUTINE Condition: GOOD Discharge Instructions (ExitCare): Diabetic Neuropathy (ED) Additional Instructions: - please take medication as prescribed - cont home meds - please follow up with PMD, Cardio and Neuro - if you experience any severe shortness of breath, chest pain, fevers, chills, n/v/d Prescriptions: Pregabalin [Lyrica] 100 mg PO TID #30 cap Referrals: [facility] [place] [Outside] - Follow up with primary Hamzah Faust MD [Staff Provider] - Follow up with primary PCP,NO [Primary Care Provider] - Follow up with primary Barry Castellanos MD [Staff Provider] - Follow up with primary Marita Jones APN-C [Advanced Practice Nurse] - Follow up with primary Forms: [employer] (Al[place]ian)
[2017-01-11 17:24] LABS: BASO # 0.04 K/mm3 (0.0-2.0); BASO % 0.6 % (0.0-3.0); EOS # 0.2 (0.0-0.7); EOS % 3.3 % (1.5-5.0); GRAN # 3.2 (1.4-6.5); GRAN % 50.9 % (50.0-68.0); HEMATOCRIT 32.9 % (36.0-48.0); LYMPH # 2.5 (1.2-3.4); MEAN CELL VOLUME 81.6 fl (80.0-105.0); MEAN CORPUSCULAR HEMOGLOBIN 26.8 pg (25.0-35.0); MEAN CORPUSCULAR HGB CONC 32.8 g/dl (31.0-37.0); MEAN PLATELET VOLUME 11.7 fl (7.0-11.0); MONO # 0.4 (0.1-0.6); MONO % 6.2 % (1.0-6.0); RED CELL DISTRIBUTION WIDTH 14.3 % (11.5-14.5); WHITE BLOOD COUNT 6.3 10^3/ul (4.5-11.0)
[2017-01-11 17:31] LABS: ALB/GLOB RATIO 1.5 (1.1-1.8); ALKALINE PHOSPHATASE 54 U/L (38-126); ALT/SGPT 22 U/L (7-56); AST/SGOT 28 U/L (14-36); BILIRUBIN,TOTAL 0.5 mg/dL (0.2-1.3); BLOOD UREA NITROGEN 37 mg/dL (7-21); CALCIUM 10.1 mg/dL (8.4-10.5); CARBON DIOXIDE 27 mmol/L (21-33); CHLORIDE 95 mmol/L (98-107); GFR AFRICAN-AMERICAN 37; GLUCOSE,RANDOM 135 mg/dL (70-110); MAGNESIUM 1.8 mg/dL (1.7-2.2); POTASSIUM 4.5 mmol/L (3.6-5.0); SODIUM 137 mmol/L (132-148); TOTAL PROTEIN 7.9 g/dL (5.8-8.3)
[2017-01-11 17:32] LABS: INR 0.96 (0.93-1.08)
[2017-01-11 17:45] LABS: TROPONIN I < 0.01 ng/mL
[2017-01-11 17:55] LABS: URINE BILIRUBIN NEGATIVE (NEGATIVE); URINE BLOOD NEGATIVE (NEGATIVE); URINE GLUCOSE (UA) NEGATIVE (NEGATIVE); URINE KETONE NEGATIVE (NEGATIVE); URINE LEUKOCYTE ESTERASE MODERATE Leu/uL (NEGATIVE); URINE PROTEIN NEGATIVE mg/dL (<30 mg/dL); URINE UROBILINOGEN 0.2 E.U./dL (<1 E.U./dL)
[2017-01-11 17:56] LABS: URINE APPEARANCE CLEAR (CLEAR); URINE COLOR YELLOW (YELLOW)
[2017-01-11 18:18] LABS: FREE T4 0.92 ng/dL (0.78-2.19)
[2017-01-11 18:32] LABS: THYROID STIMULATING HORMONE 1.12 mIU/mL (0.46-4.68)
[2017-01-11 18:32] LABS: URINE EPITHELIAL CELLS 0 - 2 /hpf (0-5); URINE RBC 0 - 2 /hpf (0-2)
[2017-01-11 18:33] LABS: URINE BACTERIA SMALL (NEG)
[2017-01-11 19:55] VITALS: BP 127/84; PULSE 68; RESP 18; O2SAT 97
--- NOTE | 2017-01-11 20:03 | RAD ---
HISTORY: weakness COMPARISON: 11/10/2016. FINDINGS: LUNGS: The lungs are well inflated and clear. PLEURA: No significant pleural effusion identified, no pneumothorax apparent. CARDIOVASCULAR: The heart is normal in size. There is stable position of a left-sided AICD. OSSEOUS STRUCTURES: No significant abnormalities. VISUALIZED UPPER ABDOMEN: Normal. OTHER FINDINGS: None. IMPRESSION: No active pulmonary disease.
--- NOTE | 2017-01-11 21:50 | CARD ---
APPROVED REPORT EKG Measurement Heart [id number] <Conclusion> Poor data quality, interpretation may be adversely affected Normal sinus rhythm T wave abnormality, consider inferolateral ischemia Abnormal ECG
== END 2017-01-11 20:10 | disposition home or self-care (01) ==
LOC: ED 16:11
DX: E11.40 Type 2 diabetes mellitus with diabetic neuropathy, unspecified (principal); I10 Essential (primary) hypertension; Z86.74 Personal history of sudden cardiac arrest; Z95.0 Presence of cardiac pacemaker

== ENCOUNTER 2017-07-14 23:05 | Observation (INO) | payer OTHER ==
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
[2017-07-14 23:59] LABS: HEMOGLOBIN 11.3 g/dL (12.0-16.0); MEAN CELL VOLUME 83.6 fl (80.0-105.0); MEAN CORPUSCULAR HEMOGLOBIN 26.8 pg (25.0-35.0); MEAN PLATELET VOLUME 10.9 fl (7.0-11.0); RBC 4.22 10^6/uL (3.5-6.1); RED CELL DISTRIBUTION WIDTH 14.6 % (11.5-14.5); WHITE BLOOD COUNT 6.6 10^3/ul (4.5-11.0)
[2017-07-15 00:19] LABS: INR 0.88 (0.93-1.08); PARTIAL THROMBOPLASTIN TIME 32.9 Seconds (25.1-36.5)
[2017-07-15 00:24] LABS: TROPONIN I < 0.01 ng/mL
[2017-07-15 00:28] LABS: ALB/GLOB RATIO 1.4 (1.1-1.8); ALBUMIN 4.7 g/dL (3.0-4.8); ALT/SGPT 25 U/L (7-56); AST/SGOT 28 U/L (14-36); B-TYPE NATRIURETIC PEPTIDE 758 pg/mL (0-450); BLOOD UREA NITROGEN 24 mg/dL (7-21); CALCIUM 10.4 mg/dL (8.4-10.5); GFR AFRICAN-AMERICAN 50; GFR NON-AFRICAN AMERICAN 42
[2017-07-15 01:11] VITALS: O2SAT 98
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
[2017-07-15] MEDS: Naproxen 550 mg Tab PO SCH ×3 (01:54→17:44)
[2017-07-15] MEDS ORDERED: Sodium Chloride 0.9% 1,000 ML IV SCH (02:00)
[2017-07-15 02:12] LABS: HDL CHOLESTEROL 63 mg/dL (29-60)
[2017-07-15 02:22] LABS: LDL CHOLESTEROL 116 mg/dL (0-129)
[2017-07-15 03:51] VITALS: BMI 25.4
[2017-07-15 06:43] VITALS: BP 132/63
[2017-07-15 06:53] LABS: BASO # 0.02 K/mm3 (0.0-2.0); BASO % 0.3 % (0.0-3.0); EOS # 0.2 (0.0-0.7); EOS % 2.6 % (1.5-5.0); GRAN # 2.8 (1.4-6.5); GRAN % 45.8 % (50.0-68.0); HEMOGLOBIN 10.4 g/dL (12.0-16.0); LYMPH # 2.7 (1.2-3.4); LYMPH % 44.4 % (22.0-35.0); MEAN CELL VOLUME 82.9 fl (80.0-105.0); MEAN CORPUSCULAR HEMOGLOBIN 26.5 pg (25.0-35.0); MEAN PLATELET VOLUME 11.2 fl (7.0-11.0); MONO # 0.4 (0.1-0.6); MONO % 6.9 % (1.0-6.0); RBC 3.92 10^6/uL (3.5-6.1); RED CELL DISTRIBUTION WIDTH 14.6 % (11.5-14.5); WHITE BLOOD COUNT 6.1 10^3/ul (4.5-11.0)
[2017-07-15 07:15] LABS: TROPONIN I < 0.01 ng/mL
[2017-07-15 07:29] LABS: ALB/GLOB RATIO 1.3 (1.1-1.8); ALT/SGPT 19 U/L (7-56); AST/SGOT 21 U/L (14-36); BLOOD UREA NITROGEN 27 mg/dL (7-21); CALCIUM 10.1 mg/dL (8.4-10.5); GFR AFRICAN-AMERICAN 50; GFR NON-AFRICAN AMERICAN 42
--- NOTE | 2017-07-15 09:09 | RAD ---
HISTORY: pain COMPARISON: 01/11/2017 FINDINGS: LUNGS: No active pulmonary disease. PLEURA: No significant pleural effusion identified, no pneumothorax apparent. CARDIOVASCULAR: Normal. OSSEOUS STRUCTURES: No significant abnormalities. VISUALIZED UPPER ABDOMEN: Normal. OTHER FINDINGS: Single lead pacemaker IMPRESSION: No active disease.
[2017-07-15] MEDS: Insulin Lispro (humaLOG) MEDIUM Coverage SC SCH ×3 (09:30→17:43)
--- NOTE | 2017-07-15 09:39 | CARD ---
APPROVED REPORT EKG Measurement Heart [id number] MD [id number] <Conclusion> Sinus rhythm with premature atrial complexes LVH STTW changes c/w ischemia, increased c/w ECG 07/14/17
--- NOTE | 2017-07-15 10:51 | CARD ---
APPROVED REPORT EKG Measurement Heart [id number] MD [id number] <Conclusion> Sinus rhythm with premature supraventricular complexes Possible Left atrial enlargement ST & T wave abnormality, consider lateral ischemia Abnormal ECG
[2017-07-15] MEDS: metOLazone 2.5 MG TAB PO SCH ×2 (11:00→17:43)
[2017-07-15] MEDS ORDERED: Magnesium Sulfate 1 gm in D5W 1 GM/100 ML BAG IVPB ONE (12:05)
[2017-07-15] MEDS ORDERED: Potassium Chloride 20 mEq ER Tab PO ONE (12:05)
--- NOTE | 2017-07-15 14:44 | CT ---
PROCEDURE: CT Chest without contrast HISTORY: R/O Rib Fracture. COMPARISON: None. TECHNIQUE: Contiguous axial images were obtained through the chest without intravenous contrast enhancement. Sagittal and coronal reconstructions were performed. Radiation dose (DLP): 394 mGy-cm. This CT exam was performed using one or more of the following dose reduction techniques: Automated exposure control, adjustment of the mA and/or kV according to patient size, and/or use of iterative reconstruction technique. FINDINGS: LUNGS: Clear lungs. Visualized airway clear. MEDIASTINUM: Unremarkable thoracic aorta. No aneurysm. Normal sized heart. Main pulmonary artery unremarkable. No vascular congestion. No lymphadenopathy. PLEURA: No pleural fluid. No pneumothorax. BONES: No fracture. No destructive lesion. UPPER ABDOMEN: Grossly unremarkable. OTHER FINDINGS: None. IMPRESSION: No evidence of rib fracture or pneumothorax
--- NOTE | 2017-07-15 14:45 | CARD ---
APPROVED REPORT EXAM: Two-dimensional and M-mode echocardiogram with Doppler and color Doppler. INDICATION Congestive Heart Failure 2D DIMENSIONS Left Atrium (2D)5.0 (1.6-4.0cm)IVSd1.2 (0.7-1.1cm) LVDd4.6 (3.9-5.9cm)LVOT Diameter1.9 (1.8-2.4cm) PWd1.2 (0.7-1.1cm)LVDs3.4 (2.5-4.0cm) FS (%) 25.1 %LVEF (%)45.0 (>50%) M-Mode DIMENSIONS Aortic Root2.80 (2.2-3.7cm)Aortic Cusp Exc.0.80 (1.5-2.0cm) Aortic Valve AoV Peak Qlnxwrgf430.0cm/sAoV VTI73.1cmAO Peak GR.54mmHg LVOT Peak Yljyolkf04.0cm/sLVOT VTI17.40cmAO Mean GR.28mmHg IZZY (VMAX)0.78vb1XIA (VTI)0.68cm2 Mitral Valve MV E Oalvbged95.0cm/sMV A Ntkhuvdf921.0cm/sMV NHW192ep E/A ratio0.6MVA (PHT)1.58cm2 TDI E/Lateral E'0.0E/Medial E'0.0 Tricuspid Valve TR Peak Mnxhdvod496md/sRAP WQSCDKUO56fjZeIN Peak Gr.29mmHg [id number] LEFT VENTRICLE The left ventricle is normal size. There is normal left ventricular wall thickness. The systolic function is mildly impaired. There is global hypokinesis of the left ventricle. Transmitral Doppler flow pattern is Grade I-abnormal relaxation pattern. RIGHT VENTRICLE The right ventricle is normal size. There is normal right ventricular wall thickness. The right ventricular systolic function is normal. ATRIA The left atrium is moderately dilated. The right atrium is mildly dilated. AORTIC VALVE The aortic valve is severely thickened. There is moderate aortic regurgitation. There is mild to moderate valvular aortic stenosis. MITRAL VALVE The mitral valve is mildly thickened. Mitral regurgitation is mild. TRICUSPID VALVE There is mild tricuspid regurgitation. There is mild pulmonary hypertension. <Conclusion> The left ventricle is normal size. There is normal left ventricular wall thickness. The systolic function is mildly impaired. There is global hypokinesis of the left ventricle. Transmitral Doppler flow pattern is Grade I-abnormal relaxation pattern. There is moderate aortic regurgitation. There is mild to moderate valvular aortic stenosis. Mitral regurgitation is mild. There is mild tricuspid regurgitation. There is mild pulmonary hypertension.
[2017-07-15 15:21] VITALS: RESP 16; TEMP 97.9
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
[2017-07-15 18:57] VITALS: PULSE 63
--- NOTE | 2017-07-15 20:07 | CP.PCM.DIS ---
Provider - Provider Date of Admission: 07/15/17 01:07 Attending physician: Veronica Echavarria MD Primary care physician: NO PRIMARY CARE PROVIDER Hospital Course - Lab Results Lab Results: Most Recent Lab Values WBC 6.1 10^3/ul (4.5-11.0) 07/15/17 06:30 RBC 3.92 10^6/uL (3.5-6.1) 07/15/17 06:30 Hgb 10.4 g/dL (12.0-16.0) L 07/15/17 06:30 Hct 32.5 % (36.0-48.0) L 07/15/17 06:30 MCV 82.9 fl (80.0-105.0) 07/15/17 06:30 MCH 26.5 pg (25.0-35.0) 07/15/17 06:30 MCHC 32.0 g/dl (31.0-37.0) 07/15/17 06:30 RDW 14.6 % (11.5-14.5) H 07/15/17 06:30 Plt Count 251 10^3/uL (120.0-450.0) 07/15/17 06:30 MPV 11.2 fl (7.0-11.0) H 07/15/17 06:30 Gran % 45.8 % (50.0-68.0) L 07/15/17 06:30 Lymph % (Auto) 44.4 % (22.0-35.0) H 07/15/17 06:30 [place] % (Auto) 6.9 % (1.0-6.0) H 07/15/17 06:30 Eos % (Auto) 2.6 % (1.5-5.0) 07/15/17 06:30 Baso % (Auto) 0.3 % (0.0-3.0) 07/15/17 06:30 Gran # 2.80 (1.4-6.5) 07/15/17 06:30 Lymph # (Auto) 2.7 (1.2-3.4) 07/15/17 06:30 [place] # (Auto) 0.4 (0.1-0.6) 07/15/17 06:30 Eos # (Auto) 0.2 (0.0-0.7) 07/15/17 06:30 Baso # (Auto) 0.02 K/mm3 (0.0-2.0) 07/15/17 06:30 PT 10.0 SECONDS (9.4-12.5) 07/14/17 23:45 INR 0.88 (0.93-1.08) L 07/14/17 23:45 APTT 32.9 Seconds (25.1-36.5) 07/14/17 23:45 Sodium 136 mmol/L (132-148) 07/15/17 06:30 Potassium 3.4 mmol/L (3.6-5.0) L 07/15/17 06:30 Chloride 97 mmol/L (98-107) L 07/15/17 06:30 Carbon Dioxide 27 mmol/L (21-33) 07/15/17 06:30 Anion Gap 16 (10-20) 07/15/17 06:30 BUN 27 mg/dL (7-21) H 07/15/17 06:30 Creatinine 1.3 mg/dl (0.7-1.2) H 07/15/17 06:30 Est GFR ( Amer) 50 07/15/17 06:30 Est GFR (Non-Af Amer) 42 07/15/17 06:30 POC Glucose (mg/dL) 167 mg/dL (65-110) H 07/15/17 16:14 Random Glucose 196 mg/dL (70-110) H 07/15/17 06:30 Hemoglobin A1c 7.7 % (4.2-6.5) H 07/14/17 23:45 Calcium 10.1 mg/dL (8.4-10.5) 07/15/17 06:30 Phosphorus 4.8 mg/dL (2.5-4.5) H 07/15/17 06:30 Magnesium 1.6 mg/dL (1.7-2.2) L 07/15/17 06:30 Total Bilirubin 0.3 mg/dL (0.2-1.3) 07/15/17 06:30 AST 21 U/L (14-36) 07/15/17 06:30 ALT 19 U/L (7-56) 07/15/17 06:30 Alkaline Phosphatase 61 U/L (38-126) 07/15/17 06:30 Lactate Dehydrogenase 535 U/L (333-699) 07/14/17 23:45 Total Creatine Kinase 56 U/L (35-230) 07/14/17 23:45 Troponin I < 0.01 ng/mL 07/15/17 12:00 NT-Pro-B Natriuret Pep 758 pg/mL (0-450) H 07/14/17 23:45 Total Protein 7.1 g/dL (5.8-8.3) 07/15/17 06:30 Albumin 4.0 g/dL (3.0-4.8) 07/15/17 06:30 Globulin 3.0 gm/dL 07/15/17 06:30 Albumin/Globulin Ratio 1.3 (1.1-1.8) 07/15/17 06:30 Triglycerides 153 mg/dL (35-160) 07/14/17 23:45 Cholesterol 208 mg/dL (130-200) H 07/14/17 23:45 LDL Cholesterol Direct 116 mg/dL (0-129) 07/14/17 23:45 HDL Cholesterol 63 mg/dL (29-60) H 07/14/17 23:45 TSH 3rd Generation 2.05 mIU/mL (0.46-4.68) 07/14/17 23:45 Discharge Exam - Head Exam Head Exam: ATRAUMATIC, NORMOCEPHALIC Discharge Plan - Follow Up Plan Condition: STABLE Disposition: HOME/ ROUTINE Referrals: PCP,NO [Primary Care Provider] -
== END 2017-07-15 20:37 | disposition left against medical advice (07) ==
LOC: ED 23:05 → ERH 07-15 01:07 → 3RSO 07-15 02:19 → INTOOBSV 07-15 16:13 → OBSVTOIN 07-15 16:13
PROVIDERS: ADMIT Internal Medicine; ATTEND Hospitalist
DX: R07.9 Chest pain, unspecified (principal); I13.0 Hypertensive heart and chronic kidney disease with heart failure and stage 1 through stage 4 chronic kidney disease, or unspecified chronic kidney disease; I50.9 Heart failure, unspecified; E11.22 Type 2 diabetes mellitus with diabetic chronic kidney disease; N18.9 Chronic kidney disease, unspecified; I25.10 Atherosclerotic heart disease of native coronary artery without angina pectoris; I35.2 Nonrheumatic aortic (valve) stenosis with insufficiency; V43.62XA Car passenger injured in collision with other type car in traffic accident, initial encounter; E78.5 Hyperlipidemia, unspecified; K21.9 Gastro-esophageal reflux disease without esophagitis; Y92.410 Unspecified street and highway as the place of occurrence of the external cause; Z86.74 Personal history of sudden cardiac arrest; Z95.810 Presence of automatic (implantable) cardiac defibrillator; Z95.1 Presence of aortocoronary bypass graft
CPT/HCPCS: 36415; 71045; 71250; 80053; 80061; 82550; 82948; 83036; 83615; 83735; 83880; 84100; 84443; 84484; 85025; 85027; 85610; 85730; 93005; 93306; 99285; G0378; J3475; J7040

== ENCOUNTER 2017-08-22 13:54 | Emergency (ER) | payer OTHER ==
[2017-08-22 14:05] VITALS: RESP 18; TEMP 98.2; O2SAT 100
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
[2017-08-22 14:07] VITALS: BMI 25.2
--- NOTE | 2017-08-22 14:42 | CT ---
PROCEDURE: CT HEAD WITHOUT CONTRAST. HISTORY: headache COMPARISON: Unenhanced head CT 11/10/2016. TECHNIQUE: Axial computed tomography images were obtained through the head/brain without intravenous contrast. Radiation dose: Total exam DLP = 793.50 mGy-cm. This CT exam was performed using one or more of the following dose reduction techniques: Automated exposure control, adjustment of the mA and/or kV according to patient size, and/or use of iterative reconstruction technique. FINDINGS: HEMORRHAGE: No intracranial hemorrhage. BRAIN: Stable trace chronic microangiopathy is appreciated. Good corticomedullary differentiation is reiterated in the interval with no definite cortical edema identified throughout. Posterior fossa contents are unremarkable as well as the midline brain anatomy. No suspicious extra-axial collection or mass effect. VENTRICLES: Unremarkable. No hydrocephalus. CALVARIUM: Unremarkable. PARANASAL SINUSES: Recurrent chronic right maxillary sinusitis noted. MASTOID AIR CELLS: Unremarkable as visualized. No inflammatory changes. OTHER FINDINGS: None. IMPRESSION: Stable minimal chronic microangiopathy. No additional intracranial findings at this time. Follow-up CT or MRI may be useful if clinically warranted. Relatively prominent right maxillary sinusitis incidentally identified on a chronic or recurrent basis.
[2017-08-22 15:12] VITALS: BP 148/70; PULSE 75
== END 2017-08-22 16:20 | disposition home or self-care (01) ==
LOC: ED 13:54
DX: R51 Headache (principal); F43.9 Reaction to severe stress, unspecified

== ENCOUNTER 2017-11-27 01:50 | Emergency (ER) | payer SELFPAY ==
[2017-11-27 02:03] VITALS: BMI 25.6
--- NOTE | 2017-11-27 02:21 | ED PDOC ---
Arrival/HPI - General Chief Complaint: Lower Extremity Problem/Injury Time Seen by Provider: 11/27/17 02:01 Historian: Patient - History of Present Illness Narrative History of Present Illness (Text): 11/27/17 02:12 A 61 year old female, whose past medical history includes pacemaker and diabetes , presents to the emergency department with a complaint of pain to the base of the right great toe. As per patient's son who translated, the patient's pain has been worsening with time. The patient denies fevers, chills, headache, dizziness, sore throat, cough, chest pain, shortness of breath, dyspnea on exertion, abdominal pain, nausea, vomiting, diarrhea, neck/back pain, urinary/ bowel changes or any other complaint. Time/Duration: Other (Few days) Symptom Onset: Sudden Symptom Course: Unchanged Activities at Onset: Rest, Light Context: Home Past Medical History - Provider Review Nursing Documentation Reviewed: Yes - Infectious Disease Hx of Infectious Diseases: None - Tetanus Immunization Tetanus Immunization: Unknown - Cardiac Hx Cardiac Disorders: Yes Hx Cardiac Arrhythmia: Yes (cardiac arrst 2016) Hx Congestive Heart Failure: Yes Hx Hypertension: Yes Hx Pacemaker: Yes Hx Peripheral Edema: Yes - Pulmonary Hx Respiratory Disorders: Yes Hx Asthma: Yes Hx Pneumonia: Yes - Neurological Hx Neurological Disorder: Yes (neuropathy) Hx Dizziness: Yes - HEENT Hx HEENT Disorder: No - Renal Hx Renal Disorder: No - Endocrine/Metabolic Hx Endocrine Disorders: Yes Hx Diabetes Mellitus Type 2: Yes Other/Comment: thyroidectomy - Hematological/Oncological Hx Blood Disorders: No - Integumentary Hx Dermatological Disorder: No - Musculoskeletal/Rheumatological Hx Falls: No - Gastrointestinal Hx Gastrointestinal Disorders: Yes Hx Gastroesophageal Reflux: Yes - Genitourinary/Gynecological Hx Genitourinary Disorders: No - Psychiatric Hx Anxiety: Yes Hx Substance Use: No - Past Surgical History Past Surgical History: Unable to Obtain - Surgical History Hx Cardiac Catheterization: Yes - Anesthesia Hx Anesthesia: No Hx Anesthesia Reactions: No Hx Malignant Hyperthermia: No - Suicidal Assessment Feels Threatened In Home Enviroment: No Family/Social History - Physician Review Nursing Documentation Reviewed: Yes Family/Social History: No Known Family HX Smoking Status: Never Smoked Hx Alcohol Use: No Hx Substance Use: No Hx Substance Use Treatment: No Allergies/Home Meds Allergies/Adverse Reactions: Allergies No Known Allergies Allergy (Verified 11/27/17 02:10) Home Medications: Home Meds Medication Instructions Recorded Confirmed Simvastatin 40 mg PO DAILY 07/05/12 11/27/17 Aspirin [Adult Low Dose Aspirin EC] 81 mg PO DAILY 11/18/15 11/27/17 Metformin HCl [Glucophage] 1,000 mg PO BID 11/18/15 11/27/17 Sertraline HCl [Zoloft] 25 mg PO DAILY 12/20/15 11/27/17 Famotidine [Pepcid] 40 mg PO DAILY 01/11/17 11/27/17 Metoclopramide [Reglan] 5 mg PO Q12 PRN 01/11/17 11/27/17 Metoprolol Tartrate [Lopressor] 10 mg PO DAILY 01/11/17 11/27/17 metOLazone [Zaroxolyn] 2.5 mg PO BID 01/11/17 11/27/17 Review of Systems - Physician Review All systems were reviewed & negative as marked: Yes - Review of Systems Constitutional: absent: Fevers Respiratory: absent: SOB, Cough Gastrointestinal: absent: Abdominal Pain, Stool Changes, Diarrhea, Nausea, Vomiting Genitourinary Female: absent: Urine Output Changes Musculoskeletal: Other (Pain to the base of the right great toe.). absent: Back Pain, Neck Pain Neurological: absent: Headache, Dizziness Physical Exam Vital Signs Reviewed: Yes Vital Signs Temp Pulse Resp BP Pulse Ox 11/27/17 02:04 98.5 F 66 18 185/84 H 99 11/27/17 02:03 98.5 F 66 18 185/84 H 99 Temperature: Afebrile Blood Pressure: Hypertensive Pulse: Regular Respiratory Rate: Normal Appearance: Positive for: Well-Appearing, Non-Toxic, Comfortable Pain Distress: None Mental Status: Positive for: Alert and Oriented X 3 Finger Stick Blood Glucose: 166 - Systems Exam Head: Present: Atraumatic, Normocephalic Pupils: Present: PERRL Extroacular Muscles: Present: EOMI Conjunctiva: Present: Normal Mouth: Present: Moist Mucous Membranes Neck: Present: Normal Range of Motion Respiratory/Chest: Present: Clear to Auscultation, Good Air Exchange. No: Respiratory Distress, Accessory Muscle Use Cardiovascular: Present: Regular Rate and Rhythm, Normal S1, S2. No: Murmurs Abdomen: No: Tenderness, Distention, Peritoneal Signs Back: Present: Normal Inspection Upper Extremity: Present: Normal Inspection. No: Cyanosis, Edema Lower Extremity: Present: Swelling (Area of minimal swelling to the right metatarsal proximal great toe area. ), Erythema (Area of errythema to the right metatarsal proximal great toe area. ). No: CALF TENDERNESS, Bahman's Sign Neurological: Present: GCS=15, CN II-XII Intact, Speech Normal Skin: Present: Warm, Dry, Normal Color. No: Rashes Psychiatric: Present: Alert, Oriented x 3, Normal Insight, Normal Concentration Medical Decision Making ED Course and Treatment: 11/27/17 02:23 Impression: A 61 year old female presents to the emergency department with complaint of worsening pain to the base of the right great toe. Plan: -- Right Foot X- Ray -- Labs -- Reassess and disposition Prior Visits: Notes and results from previous visits were reviewed. Progress Notes: 11/27/17 03:58: Right Foot X-Ray shows no acute process. On reevaluation the patient feels better and is in no acute distress. I have discussed the results and plan with the patient, who expresses understanding. Patient given the opportunity to ask question, all questions were answered and there is agreement with the plan to discharge the patient home. Patient is stable for discharge. Patient was instructed to follow up with physician/clinic in 1-2 days or return if symptoms persist/worsen or new concerning symptoms arise. - Lab Interpretations Lab Results: 11/27/17 02:35 11/27/17 02:35 Lab Results 11/27/17 02:35: WBC 7.1, RBC 3.89, Hgb 10.6 L, Hct 32.1 L, MCV 82.5, MCH 27.2, MCHC 33.0, RDW 14.2, Plt Count 282, MPV 10.9 11/27/17 02:35: Sodium 140, Potassium 4.1, Chloride 99, Carbon Dioxide 29, Anion Gap 16, BUN 21, Creatinine 1.2, Est GFR ( Amer) 55, Est GFR (Non- Af Amer) 46, Random Glucose 162 H, Uric Acid 8.9 H, Calcium 9.8, Total Bilirubin 0.4, AST 21, ALT 19, Alkaline Phosphatase 50, Total Protein 7.8, Albumin 4.6, Globulin 3.2, Albumin/Globulin Ratio 1.5 I have reviewed the lab results: Yes - RAD Interpretation Radiology Orders: 11/27/17 02:27 FOOT RIGHT 3 VIEWS ROUTINE [RAD] Stat - Medication Orders Current Medication Orders: Discontinued Medications Colchicine (Colocrys) 1.2 mg PO ONCE ONE Stop: 11/27/17 03:46 Last Admin: 11/27/17 04:05 Dose: 1.2 mg Colchicine (Colocrys) 0.6 mg PO ONCE ONE Stop: 11/27/17 05:26 Ketorolac Tromethamine (Toradol) 30 mg IVP ONCE ONE Stop: 11/27/17 03:48 Last Admin: 11/27/17 04:05 Dose: 30 mg MAR Pain Assessment Document 11/27/17 04:05 IT (Rec: 11/27/17 04:05 IT [id number]) Pain Reassessment Is this a pain reassessment? No Sleep Is patient sleeping during reassessment? No Presence of Pain Presence of Pain Yes Pain Scale Used Pain Scale Used Numeric IVP Administration Document 11/27/17 04:05 IT (Rec: 11/27/17 04:05 IT [id number]) Charges for Administration # of IVP Administrations 1 - Scribe Statement The provider has reviewed the documentation as recorded by the Veronica Rich Provider Scribe Attestation: All medical record entries made by the Scribe were at my direction and personally dictated by me. I have reviewed the chart and agree that the record accurately reflects my personal performance of the history, physical exam, medical decision making, and the department course for this patient. I have also personally directed, reviewed, and agree with the discharge instructions and disposition. Disposition/Present on Arrival - Present on Arrival Any Indicators Present on Arrival: No History of DVT/PE: No History of Uncontrolled Diabetes: No Urinary Catheter: No History of Decub. Ulcer: No History Surgical Site Infection Following: None - Disposition Have Diagnosis and Disposition been Completed?: Yes Diagnosis: Gout Disposition: HOME/ ROUTINE Disposition Time: 05:25 Patient Plan: Discharge Patient Problems: Current Active Problems Problem Status Onset Gout Acute Condition: GOOD Discharge Instructions (ExitCare): Gout (DC) Additional Instructions: Drink plenty of liquids/take meds as prescribed/follow up with your doctor this week Prescriptions: Ibuprofen [Motrin] 400 mg PO Q6 PRN #16 tab PRN Reason: Pain, Moderate (4-7) Referrals: [facility] [Outside] - Follow up with primary Teresa Rivera MD [Medical Doctor] - Follow up with primary Forms: [employer] ([place])
[2017-11-27 02:51] LABS: HEMOGLOBIN 10.6 g/dL (12.0-16.0); MEAN CELL VOLUME 82.5 fl (80.0-105.0); MEAN CORPUSCULAR HEMOGLOBIN 27.2 pg (25.0-35.0); MEAN PLATELET VOLUME 10.9 fl (7.0-11.0); RBC 3.89 10^6/uL (3.5-6.1); RED CELL DISTRIBUTION WIDTH 14.2 % (11.5-14.5); WHITE BLOOD COUNT 7.1 10^3/ul (4.5-11.0)
[2017-11-27 03:00] LABS: ALB/GLOB RATIO 1.5 (1.1-1.8); ALBUMIN 4.6 g/dL (3.0-4.8); CALCIUM 9.8 mg/dL (8.4-10.5); URIC ACID 8.9 mg/dL (2.5-6.2)
[2017-11-27 05:55] VITALS: BP 162/72; PULSE 68; RESP 17; TEMP 98; O2SAT 98
--- NOTE | 2017-11-27 09:07 | RAD ---
Date of service: 11/27/2017 PROCEDURE: Right Foot Radiographs. HISTORY: pain COMPARISON: None. FINDINGS: BONES: Normal. No fracture. JOINTS: Normal. SOFT TISSUES: Normal. OTHER FINDINGS: None. IMPRESSION: Normal right foot radiographs.
== END 2017-11-27 05:55 | disposition home or self-care (01) ==
LOC: ED 01:50
DX: M10.9 Gout, unspecified (principal); E11.9 Type 2 diabetes mellitus without complications; Z95.0 Presence of cardiac pacemaker; I10 Essential (primary) hypertension
CPT/HCPCS: 73630; 80053; 84550; 85027; 96374; 99283; J1885

== ENCOUNTER 2018-07-11 20:25 | Emergency (ER) | payer MEDICAID, OTHER ==
[2018-07-11 20:35] VITALS: BMI 25.0
--- NOTE | 2018-07-11 20:36 | ED PDOC ---
Arrival/HPI - General Time Seen by Provider: 07/11/18 20:30 Historian: Patient - History of Present Illness Narrative History of Present Illness (Text): 07/11/18 21:32 62 y/o female with PMH of CAD, CHF (s/p AICD placement 2016), , presents to the ED c/o chest pain s/p ICD discharge at 7pm tonight. Pt was sitting when she suddenly felt a shock in her left chest. Pt did not lose consciousness. She received 4 baby ASA and 2 sublingual nitroglycerins [employer]. Pt reports some improvement in pain. Unsure of the name of her device. Associated SOB. Pt's elec trophysiologist is Dr. Ortiz, PMD is Dr. Harris. Denies fever, chills, cough, congestions, palpitations, nausea, vomiting, abdominal pain, dizziness, numbness, weakness, paresthesias, headache, calf swelling, or any other associated symptoms. Past Medical History - Provider Review Nursing Documentation Reviewed: Yes - Infectious Disease Hx of Infectious Diseases: None - Tetanus Immunization Tetanus Immunization: Unknown - Cardiac Hx Cardiac Disorders: Yes Hx Cardiac Arrhythmia: Yes (cardiac arrst 2017) Hx Congestive Heart Failure: Yes Hx Hypertension: Yes Hx Pacemaker: Yes Hx Peripheral Edema: Yes - Pulmonary Hx Respiratory Disorders: Yes Hx Asthma: Yes Hx Pneumonia: Yes - Neurological Hx Neurological Disorder: Yes (neuropathy) Hx Dizziness: Yes - HEENT Hx HEENT Disorder: No - Renal Hx Renal Disorder: No - Endocrine/Metabolic Hx Endocrine Disorders: Yes Hx Diabetes Mellitus Type 2: Yes Other/Comment: thyroidectomy - Hematological/Oncological Hx Blood Disorders: No - Integumentary Hx Dermatological Disorder: No - Musculoskeletal/Rheumatological Hx Falls: No - Gastrointestinal Hx Gastrointestinal Disorders: Yes Hx Gastroesophageal Reflux: Yes - Genitourinary/Gynecological Hx Genitourinary Disorders: No - Psychiatric Hx Anxiety: Yes Hx Substance Use: No - Past Surgical History Past Surgical History: Unable to Obtain - Surgical History Hx Cardiac Catheterization: Yes - Anesthesia Hx Anesthesia: No Hx Anesthesia Reactions: No Hx Malignant Hyperthermia: No - Suicidal Assessment Feels Threatened In Home Enviroment: No Family/Social History - Physician Review Nursing Documentation Reviewed: Yes Family/Social History: No Known Family HX Smoking Status: Never Smoked Hx Alcohol Use: No Hx Substance Use: No Hx Substance Use Treatment: No Allergies/Home Meds Allergies/Adverse Reactions: Allergies No Known Allergies Allergy (Verified 11/27/17 02:10) Home Medications: Home Meds Medication Instructions Recorded Confirmed Simvastatin 40 mg PO DAILY 07/05/12 11/27/17 Aspirin [Adult Low Dose Aspirin EC] 81 mg PO DAILY 11/18/15 11/27/17 Metformin HCl [Glucophage] 1,000 mg PO BID 11/18/15 11/27/17 Sertraline HCl [Zoloft] 25 mg PO DAILY 12/20/15 11/27/17 Famotidine [Pepcid] 40 mg PO DAILY 01/11/17 11/27/17 Metoclopramide [Reglan] 5 mg PO Q12 PRN 01/11/17 11/27/17 Metoprolol Tartrate [Lopressor] 10 mg PO DAILY 01/11/17 11/27/17 metOLazone [Zaroxolyn] 2.5 mg PO BID 01/11/17 11/27/17 Review of Systems - Review of Systems Constitutional: Normal. absent: Fevers Eyes: Normal. absent: Vision Changes, Photophobia ENT: Normal. absent: Sore Throat, Sinus Congestion Respiratory: SOB. absent: Cough, Sputum Cardiovascular: Chest Pain. absent: Palpitations, Syncope Gastrointestinal: Normal. absent: Abdominal Pain, Nausea, Vomiting Genitourinary Female: Normal. absent: Dysuria, Frequency Musculoskeletal: Normal. absent: Back Pain, Neck Pain Skin: Normal. absent: Rash Neurological: Normal. absent: Headache, Dizziness, Focal Weakness Physical Exam Vital Signs Reviewed: Yes Temperature: Afebrile Blood Pressure: Normal Pulse: Regular Respiratory Rate: Normal Appearance: Positive for: Non-Toxic, Comfortable, Uncomfortable Pain Distress: None Mental Status: Positive for: Alert and Oriented X 3 - Systems Exam Head: Present: Atraumatic, Normocephalic Pupils: Present: PERRL Extroacular Muscles: Present: EOMI Conjunctiva: Present: Normal Mouth: Present: Moist Mucous Membranes Neck: Present: Normal Range of Motion Respiratory/Chest: Present: Decreased Breath Sounds (bilaterally). No: Respiratory Distress, Accessory Muscle Use Cardiovascular: Present: Regular Rate and Rhythm, Normal S1, S2, Peripheal Pulses Present Abdomen: Present: Normal Bowel Sounds. No: Tenderness, Distention, Peritoneal Signs, Rebound, Guarding Back: Present: Normal Inspection Upper Extremity: Present: Normal Inspection, Normal ROM, NORMAL PULSES, Neurovascularly Intact, Capillary Refill < 2s. No: Cyanosis, Edema, Temperature Abnormalties Lower Extremity: Present: Normal Inspection, Normal ROM. No: Edema Neurological: Present: GCS=15, CN II-XII Intact, Speech Normal, Motor Func Grossly Intact, Normal Sensory Function, Gait Normal Skin: Present: Warm, Dry, Normal Color. No: Rashes Psychiatric: Present: Alert, Oriented x 3, Normal Insight, Normal Concentration, Normal Affect, Normal Mood Medical Decision Making ED Course and Treatment: Initial Plan: * CBC, CMP * Coags * Cardiac Iso * Mg, Phos * CXR * EKG Patient already received full dose of aspirin [employer]. EKG shows NSR at 98; no STEMI, nonspecific changes 2054 Bloodwork reviewed, mild hypomagnesia; otherwise unremarkable. Troponin negative Will replete with 2g mag sulfate 2100 Call placed to patient's stamp maker Dr. Ortiz without response. Will seek inpatient observation under hospitalist service. 2154 Patient unwilling to stay for inpatient observation. Asking to leave AMA. Patient advised that cardiac pathology can still be present with a normal workup and that cardiology consult, AICD interrogation, and inpatient observation is advised. Pt continues to refuse. 2204 The patient is choosing to leave against medical advice. I have personally explained to the patient that choosing to do so may result in permanent bodily harm, disability, or . I have discussed at great length that without further evaluation and monitoring there may be unforeseen circumstances and/or deterioration causing permanent bodily harm or as a result of their choice. The patient is alert, oriented, and shows the mental capacity to make clear decisions regarding the patients health care at this time. The patient continues to wish to leave against medical advice. In light of the patients decision to leave against medical advice, follow-up has been arranged and the patient is aware of the importance to following up as instructed. The patient has been advised that they should return to the emergency room immediately if they change their mind at any time, or if their condition begins to change or worsen in any way. AMA form signed by me and patient after lengthy discussion as detailed above. Patient refused [employer] of [employer] service, requested daughter to translate. Witnessed by nursing staff. Pt states she has appointment with PMD tomorrow morning. - Lab Interpretations Lab Results: 07/11/18 20:37 07/11/18 20:37 Lab Results 07/11/18 20:37: Sodium 139, Potassium 3.7, Chloride 95 L, Carbon Dioxide 28, Anion Gap 20, BUN 27 H, Creatinine 1.4 H, Est GFR ( Amer) 46, Est GFR (Non-Af Amer) 38, Random Glucose 211 H, Calcium 10.8 H, Magnesium 1.5 L, Total Bilirubin 0.3, AST 30, ALT 13, Alkaline Phosphatase 72, Lactate Dehydrogenase 470, Total Creatine Kinase 49, Troponin I < 0.01, NT-Pro-B Natriuret Pep 258, Total Protein 9.0 H, Albumin 4.8, Globulin 4.2, Albumin/Globulin Ratio 1.1 07/11/18 20:37: PT 11.1, INR 1.00, APTT 36.2 07/11/18 20:37: WBC 7.5, RBC 4.14, Hgb 11.2 L, Hct 34.8 L, MCV 84.1, MCH 27.1, MCHC 32.2, RDW 13.6, Plt Count 299, MPV 11.0, Neut % (Auto) 53.8, Lymph % (Auto) 38.6 H, [place] % (Auto) 5.7, Eos % (Auto) 1.5, Baso % (Auto) 0.4, Lymph # (Auto) 2.9, [place] # (Auto) 0.4, Eos # (Auto) 0.1, Baso # (Auto) 0.03, Absolute Neuts (auto) 4.02 I have reviewed the lab results: Yes Disposition/Present on Arrival - Present on Arrival Any Indicators Present on Arrival: No History of DVT/PE: No History of Uncontrolled Diabetes: No Urinary Catheter: No History Surgical Site Infection Following: None - Disposition Have Diagnosis and Disposition been Completed?: No Diagnosis: Left against medical advice, Chest pain, ICD (implantable cardioverter- defibrillator) discharge Disposition: AGAINST MEDICAL ADVICE Disposition Time: 22:05 Condition: GUARDED Discharge Instructions (ExitCare): Chest Pain (ED) Referrals: Ulisses Harris MD [Primary Care Provider] - Follow up with primary
[2018-07-11 20:49] VITALS: RESP 18; TEMP 97.9; O2SAT 100
[2018-07-11 20:51] LABS: BASO # 0.03 K/mm3 (0.0-2.0); BASO % 0.4 % (0.0-3.0); EOS # 0.1 (0.0-0.7); EOS % 1.5 % (1.5-5.0); HEMOGLOBIN 11.2 g/dL (12.0-16.0); LYMPH # 2.9 (1.2-3.4); LYMPH % 38.6 % (22.0-35.0); MEAN CELL VOLUME 84.1 fl (80.0-105.0); MEAN CORPUSCULAR HEMOGLOBIN 27.1 pg (25.0-35.0); MEAN CORPUSCULAR HGB CONC 32.2 g/dl (31.0-37.0); MONO # 0.4 (0.1-0.6); MONO % 5.7 % (1.0-6.0); RBC 4.14 10^6/uL (3.5-6.1); RED CELL DISTRIBUTION WIDTH 13.6 % (11.5-14.5); WHITE BLOOD COUNT 7.5 10^3/uL (4.5-11.0)
[2018-07-11 20:55] LABS: ALB/GLOB RATIO 1.1 (1.1-1.8); ALBUMIN 4.8 g/dL (3.0-4.8); ALT/SGPT 13 U/L (7-56); AST/SGOT 30 U/L (14-36); BLOOD UREA NITROGEN 27 mg/dL (7-21); CALCIUM 10.8 mg/dL (8.4-10.5); GFR NON-AFRICAN AMERICAN 38; PARTIAL THROMBOPLASTIN TIME 36.2 Seconds (26.9-38.3); PROTHROMBIN TIME 11.1 SECONDS (9.4-12.5)
[2018-07-11 21:07] LABS: B-TYPE NATRIURETIC PEPTIDE 258 pg/mL (0-450); TROPONIN I < 0.01 ng/mL
[2018-07-11] MEDS ORDERED: Magnesium Sulfate 2 gm/50 ml 2 GM/50 ML BAG IVPB ONE (21:20)
[2018-07-11 22:23] VITALS: BP 109/68; PULSE 87
--- NOTE | 2018-07-12 09:18 | RAD ---
HISTORY: chest pain, SOB COMPARISON: Chest x-ray performed 07/14/17. TECHNIQUE: Chest, one view. FINDINGS: Examination limited by habitus and hypoinflation. LUNGS: No focal consolidation. Please note that chest x-ray has limited sensitivity for the detection of pulmonary masses. PLEURA: No significant pleural effusion identified. No definite pneumothorax . CARDIOVASCULAR: Single lead left-sided AICD. Heart size appears within normal limits. No significant atherosclerotic calcification present. OSSEOUS STRUCTURES: No acute osseous abnormality identified. VISUALIZED UPPER ABDOMEN: Unremarkable. OTHER FINDINGS: None. IMPRESSION: No focal consolidation. Single lead left-sided AICD.
--- NOTE | 2018-07-12 15:19 | CARD ---
APPROVED REPORT Date of service: 07/11/2018 EKG Measurement Heart [id number] <Conclusion> Normal sinus rhythm T wave abnormality, consider inferior ischemia T wave abnormality, consider anterolateral ischemia Abnormal ECG
== END 2018-07-11 22:10 | disposition left against medical advice (07) ==
LOC: ED 20:25
DX: R07.9 Chest pain, unspecified (principal); Z95.810 Presence of automatic (implantable) cardiac defibrillator; E11.9 Type 2 diabetes mellitus without complications; I25.10 Atherosclerotic heart disease of native coronary artery without angina pectoris; I50.9 Heart failure, unspecified; I10 Essential (primary) hypertension